=== PATIENT | female | born 1935 | race Caucasian/White ===

== ENCOUNTER 2019-04-19 06:39 | Day surgery (SDC) | payer MEDICARE ==
[2019-04-17 15:55] VITALS: BMI 27.4
--- NOTE | 2019-04-18 19:31 | P.GSHP ---
History of Present Illness H&P Date: 04/19/19 CHIEF COMPLAINT: Colon screen HISTORY OF PRESENT ILLNESS: The patient is a 83-year-old female who presents for colon screen. Lower endoscopy was offered for further evaluation and management. PAST MEDICAL HISTORY: Please see list. PAST SURGICAL HISTORY: Please see list. MEDICATIONS: Please see list. ALLERGIES: Please see list. SOCIAL HISTORY: No illicit drug use FAMILY HISTORY: No reports of Crohn disease or ulcerative colitis. REVIEW OF ORGAN SYSTEMS: CONSTITUTIONAL: No reports of fevers or chills. PHYSICAL EXAM: VITAL SIGNS: Stable GENERAL: Well-developed pleasant in no acute distress. HEENT: No scleral icterus. Extraocular movements grossly intact. Moist buccal mucosa. NECK: Supple without lymphadenopathy. CHEST: Unlabored respirations. Equal bilateral excursions. CARDIOVASCULAR: Regular rate and rhythm. Distal 2+ pulses. ABDOMEN: Soft, nontender, nondistended. MUSCULOSKELETAL: No clubbing, cyanosis, or edema. ASSESSMENT: 1. Colon screen. PLAN: 1. Recommend proceeding with a lower endoscopy Past Medical History Past Medical History: Diabetes Mellitus, Eye Disorder, Hyperlipidemia, Hypertension Additional Past Medical History / Comment(s): CHANGE IN BOWEL HABITS. LOSS OF APPETITE. 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 parathyroid surgery. COLONOSCOPY. BILAT CATARACTS REMOVED. REPAIR OF HOLE IN LT EYE Past Anesthesia/Blood Transfusion Reactions: No Reported Reaction Date of Last Stent Placement:: 2011 Smoking Status: Never smoker - Past Family History Mother Family Medical History: No Reported History Medications and Allergies Home Medications Medication Instructions Recorded Confirmed Type Aspirin EC [Ecotrin] 325 mg PO DAILY 09/23/14 04/17/19 History Calcium Carbonate [Tums] 2,000 mg PO TID 09/23/14 04/17/19 History Cholecalciferol [Vitamin D3] 2,000 unit PO DAILY@1200 09/23/14 04/17/19 History Enalapril [Vasotec] 2.5 mg PO BID 09/23/14 04/17/19 History Focus Macula Pro 1 drops DAILY 09/23/14 04/17/19 History Pravastatin Sodium [Pravachol] 40 mg PO HS 09/23/14 04/17/19 History metFORMIN HCL [Glucophage] 500 mg PO DAILY 09/23/14 04/17/19 History Multivitamins, Thera [Multivitamin 1 tab PO DAILY 04/17/19 04/17/19 History (formulary)] Allergies Allergy/AdvReac Type Severity Reaction Status Date / Time No Known Allergies Allergy Verified 04/17/19 15:46
[~2019-04-19 06:39] MED LIST: LACTATED RINGERS 1,000 ML IV SCH
[2019-04-19 07:15] VITALS: TEMP 98.3
[2019-04-19] MEDS ORDERED: LACTATED RINGERS 1,000 ML IV ONE (07:20)
[2019-04-19 07:23] LABS: Glucose,Whole Blood 112 mg/dL (75-99)
[2019-04-19] MEDS ORDERED: PROPOFOL 10 MG/ML 20 ML VIAL IV ONE (07:24)
[2019-04-19] MEDS ORDERED: ePHEDrine SULFATE/0.9% NACL/PF 50 MG/5 ML SYRINGE IV ONE (07:24)
--- NOTE | 2019-04-19 07:53 | P.PCN ---
Date of Procedure: 04/19/19 Description of Procedure: PREOPERATIVE DIAGNOSIS: Change in bowel habits Anal rectal pain POSTOPERATIVE DIAGNOSIS: Change in bowel habits. Anal rectal pain Diverticulosis, scattered. Pruritus ani Lichen sclerosus perineum/vulva OPERATION: Colonoscopy to the ascending colon SURGEON: Britney Torres MD. ANESTHESIA: MAC. INDICATIONS: The patient is a 83-year-old female who presents with change in bowel habits including pain. Benefits and risks were described and informed consent was obtained. DESCRIPTION OF PROCEDURE: The patient had undergone Suprep. She had been brought into the operating room and laid in the left lateral decubitus position. After adequate intravenous sedation, the rectum was examined with 2% lidocaine jelly. Large external hemorrhoids were encountered with features of lichen sclerosus along the perineum extending into the vulva. The rectal tone was within normal limits. No lesions were palpated in the rectal vault. An Olympus colonoscope was advanced to the ascending colon using abdominal wall pressure she had a very floppy sigmoid colon. The prep was good. The scope was removed with visualization of each mucosal fold. Scattered diverticulosis was encountered. No colonic polyps were found. No evidence of focal colitis was found. Retroflexion of the scope demonstrated grade 1 internal hemorrhoids without active bleeding or inflammation. The colon was desufflated. The patient had tolerated the procedure well. Withdrawal time was over 6 minutes. FINDINGS: Aronchick preparation quality scale 2 (1-5) Internal hemorrhoids, grade 1 External prolapsed hemorrhoids, grade 4 No arteriovenous malformations. No adenomatous polyps. No focal colitis. Lichen sclerosus perineum including anus, vulva RECOMMENDATIONS: Will need skin biopsy of the perineum including referral to a cans vacuum tester Plan - Discharge Summary Discharge Rx Participant: Yes New Discharge Prescriptions: No Action Pravastatin Sodium [Pravachol] 40 mg PO HS Aspirin EC [Ecotrin] 325 mg PO DAILY metFORMIN HCL [Glucophage] 500 mg PO DAILY Cholecalciferol [Vitamin D3] 2,000 unit PO DAILY@1200 Calcium Carbonate [Tums] 2,000 mg PO TID Enalapril [Vasotec] 2.5 mg PO BID Focus Macula Pro 1 drops DAILY Multivitamins, Thera [Multivitamin (formulary)] 1 tab PO DAILY Discharge Medication List Aspirin EC [Ecotrin] 325 mg PO DAILY 09/23/14 [History] Calcium Carbonate [Tums] 2,000 mg PO TID 09/23/14 [History] Cholecalciferol [Vitamin D3] 2,000 unit PO DAILY@1200 09/23/14 [History] Enalapril [Vasotec] 2.5 mg PO BID 09/23/14 [History] Focus Macula Pro 1 drops DAILY 09/23/14 [History] Pravastatin Sodium [Pravachol] 40 mg PO HS 09/23/14 [History] metFORMIN HCL [Glucophage] 500 mg PO DAILY 09/23/14 [History] Multivitamins, Thera [Multivitamin (formulary)] 1 tab PO DAILY 04/17/19 [History] Follow up Appointment(s)/Referral(s): Britney Torres MD [STAFF PHYSICIAN] - 04/23/19 Patient Instructions/Handouts: Diverticulosis Diet (GEN), Diverticulosis (DC) Activity/Diet/Wound Care/Special Instructions: Lower endoscopy as needed. Follow-up in the office Discharge Disposition: HOME SELF-CARE
[2019-04-19 08:09] VITALS: BP 142/87; PULSE 76; RESP 18
== END 2019-04-19 08:35 | disposition home or self-care (01) ==
LOC: ORWHC2ENDO 06:39
PROVIDERS: ATTEND Surgery Plastic and Reconstructive Surgery
DX: K57.30 Diverticulosis of large intestine without perforation or abscess without bleeding (principal); K64.0 First degree hemorrhoids; K64.8 Other hemorrhoids; L90.0 Lichen sclerosus et atrophicus; L29.0 Pruritus ani; K63.89 Other specified diseases of intestine; K62.89 Other specified diseases of anus and rectum; N90.4 Leukoplakia of vulva; I10 Essential (primary) hypertension; E78.5 Hyperlipidemia, unspecified; I25.10 Atherosclerotic heart disease of native coronary artery without angina pectoris; E11.9 Type 2 diabetes mellitus without complications; Z95.5 Presence of coronary angioplasty implant and graft; Z90.49 Acquired absence of other specified parts of digestive tract; Z98.890 Other specified postprocedural states; Z98.41 Cataract extraction status, right eye; Z98.42 Cataract extraction status, left eye; Z86.69 Personal history of other diseases of the nervous system and sense organs; Z79.82 Long term (current) use of aspirin; Z79.84 Long term (current) use of oral hypoglycemic drugs; Z79.899 Other long term (current) drug therapy
CPT/HCPCS: 45378; J2704

== ENCOUNTER → 2020-01-06 | Outpatient (CLI) | payer MEDICARE ==
[~2020-01-06] MED LIST changes: +DENOSUMAB 60 MG/ML 1 ML SYRINGE SQ NR; +DENOSUMAB 60 MG/ML 1 ML SYRINGE SQ ONE; -LACTATED RINGERS 1,000 ML IV SCH
[2020-01-06 10:09] VITALS: BP 153/79; PULSE 91; RESP 16; TEMP 98.1
== END | disposition home or self-care (01) ==
LOC: PROCWHC3 09:46
PROVIDERS: ATTEND Family Medicine
DX: M81.0 Age-related osteoporosis without current pathological fracture (principal)
CPT/HCPCS: 96372; J0897

== ENCOUNTER → 2020-07-08 | Outpatient (CLI) | payer MEDICARE ==
[~2020-07-08] MED LIST changes: -DENOSUMAB 60 MG/ML 1 ML SYRINGE SQ NR
[2020-07-08 10:47] VITALS: BP 172/85; PULSE 99; RESP 16; TEMP 97.8
== END | disposition home or self-care (01) ==
LOC: PROCWHC3 10:32
PROVIDERS: ATTEND Family Medicine
DX: M81.0 Age-related osteoporosis without current pathological fracture (principal)
CPT/HCPCS: 96372; J0897

== ENCOUNTER → 2021-01-13 | Outpatient (CLI) | payer MEDICARE ==
[2021-01-13 10:39] VITALS: BP 136/70; PULSE 98; RESP 16; TEMP 98.1
== END ==
LOC: PROCWHC3 10:14
PROVIDERS: ATTEND Family Medicine
DX: M81.0 Age-related osteoporosis without current pathological fracture (principal)
CPT/HCPCS: 96372; J0897

== ENCOUNTER → 2021-05-19 | Outpatient (CLI) | payer MEDICARE ==
[~2021-05-19] MED LIST changes: +CASIRIVIMAB/IMDEVIMAB (EUA) 1,200 MG in SODIUM CHLORIDE 0.9% 100 ML IVPB NR; -DENOSUMAB 60 MG/ML 1 ML SYRINGE SQ ONE; +SODIUM CHLORIDE 0.9% 50 ML IVPB NR; +SODIUM CHLORIDE 0.9% 500 ML 500 ML in EMPTY BAG 1 BAG IV PRN
[2021-05-19 11:07] VITALS: RESP 16; TEMP 97.9
[2021-05-19 11:51] VITALS: BP 116/59; PULSE 76
== END ==
LOC: PROCWHC3 10:07
PROVIDERS: ATTEND Family Medicine
DX: U07.1 COVID-19 (principal); I11.9 Hypertensive heart disease without heart failure
CPT/HCPCS: 96360; Q0243; M0243; 96361

== ENCOUNTER → 2021-07-16 | Outpatient (CLI) | payer MEDICARE ==
[~2021-07-16] MED LIST changes: -CASIRIVIMAB/IMDEVIMAB (EUA) 1,200 MG in SODIUM CHLORIDE 0.9% 100 ML IVPB NR; +DENOSUMAB 60 MG/ML 1 ML SYRINGE SQ NR; -SODIUM CHLORIDE 0.9% 50 ML IVPB NR; -SODIUM CHLORIDE 0.9% 500 ML 500 ML in EMPTY BAG 1 BAG IV PRN
[2021-07-16 09:10] VITALS: BP 166/79; PULSE 99; RESP 16; TEMP 98.6
== END ==
LOC: PROCWHC3 08:42
PROVIDERS: ATTEND Family Medicine
DX: M81.0 Age-related osteoporosis without current pathological fracture (principal)
CPT/HCPCS: 96372; J0897

== ENCOUNTER → 2022-01-25 | Outpatient (CLI) | payer MEDICARE ==
[2022-01-25 09:23] VITALS: BP 144/72; PULSE 96; RESP 18; TEMP 97.8
== END ==
LOC: PROCWHC3 08:59
PROVIDERS: ATTEND Family Medicine
DX: M81.0 Age-related osteoporosis without current pathological fracture (principal)
CPT/HCPCS: 96372; J0897

== ENCOUNTER → 2023-03-17 | Outpatient (CLI) | payer MEDICARE ==
--- NOTE | 2023-03-17 13:23 | US ---
EXAMINATION TYPE: US kidneys/renal and bladder DATE OF EXAM: 03/17/2023 COMPARISON: NONE CLINICAL INDICATION: Female, 87 years old with history of N13.2 HYDRONEPHROSIS; [place] hx of stones.Mehran wade states she has a stent in. EXAM MEASUREMENTS: Right Kidney: 10.8 x 4.1 x 5.4 cm Left Kidney: 11.7 x 7.2 cm Right Kidney: Multiple stones visualized largest 1.2 cm dilated renal pelvis 6.5 x 2.9 x 5.7 cm. Left Kidney: Multiple stones visualized largest 2.1 cm Bladder: not full Bilateral Jets seen: no Dilated right renal pelvis with mild hydronephrosis. Multiple calculi identified within both kidneys. Mild left hydronephrosis. Prominent 2.1 cm calculus identified within the renal pelvis. No definitiv e ureteral stent identified. Urine bladder is underdistended. No bowel jets identified. IMPRESSION: Mild bilateral hydronephrosis. Multiple bilateral renal calculi with largest in the left renal pelvis measuring up to 2.1 cm.
--- NOTE | 2023-03-17 13:24 | XR ---
EXAMINATION TYPE: XR KUB DATE OF EXAM: 03/17/2023 COMPARISON: Renal ultrasound the same date HISTORY: Hydronephrosis TECHNIQUE: Single supine KUB image of the abdomen is obtained FINDINGS: Small bowel demonstrates no evidence for dilatation or air fluid levels. Gas and fecal material is seen in non-distended colon. No convincing evidence for pneumoperitoneum. Right renal 7 mm calculus. Left renal pelvis 2.0 cm calculus. No ureteral stent is identified. The lung bases are clear. The osseous structures are intact. Degenerative changes of the lumbar spine. IMPRESSION: Bilateral renal calculi with a 2.0 cm calculus in the left renal pelvis corresponding to ultrasound.
== END | disposition home or self-care (01) ==
LOC: RADUSWWP 11:49
PROVIDERS: ATTEND Urology
DX: N13.2 Hydronephrosis with renal and ureteral calculous obstruction (principal); Z87.442 Personal history of urinary calculi
CPT/HCPCS: 74018; 76770

== ENCOUNTER → 2023-04-06 | Outpatient (CLI) | payer MEDICARE ==
[2023-04-06 16:32] LABS: Basophils # (A) 0.04 X 10*3/uL (0.00-0.10); Basophils % (A) 0.7 %; Eosinophils # (A) 0.11 X 10*3/uL (0.04-0.35); Eosinophils % (A) 1.9 %; HCT 41.3 % (37.2-46.3); HGB 13.2 d/dL (12.0-15.0); Lymphocytes # (A) 1.67 X 10*3/uL (0.90-5.00); Lymphocytes % (A) 28.9 %; MCH 30.4 pg (27.0-32.0); MCV 95.2 FL (80.0-97.0); Mean Platelet Volume 10.1 FL (9.5-12.2); Monocytes % (A) 6.9 %; NRBC Per 100 WBC 0 X 10*3/uL (0.00-0.01); Neutrophils # (A) 3.55 X 10*3/uL (1.80-7.70); Neutrophils % (A) 61.4 %; Platelet Count 263 X 10*3/uL (140-440); RBC 4.34 X 10*6/uL (4.10-5.20); RDW 12.9 % (11.5-14.5); WBC 5.78 X 10*3/uL (4.50-10.00)
[2023-04-06 18:10] LABS: Blood Urea Nitrogen 18.2 mg/dL (9.0-27.0); Carbon Dioxide 28.3 mmol/L (21.6-31.8); Chloride 105 mmol/L (96-109); Glucose 116 mg/dL (70-110); Potassium 5.8 mmol/L (3.5-5.5); Sodium 144 mmol/L (135-145)
== END | disposition home or self-care (01) ==
LOC: LABPAT 10:25
PROVIDERS: ATTEND Urology
DX: Z01.812 Encounter for preprocedural laboratory examination (principal); N20.0 Calculus of kidney; R31.29 Other microscopic hematuria
CPT/HCPCS: 36415; 80048; 85025; 87086

== ENCOUNTER 2023-05-18 06:47 | Day surgery (SDC) | payer MEDICARE ==
--- NOTE | 2023-05-17 22:04 | P.GSHP ---
History of Present Illness H&P Date: 05/17/23 Chief Complaint: Gross hematuria, hydronephrosis The patient is an 87-year-old white female with no prior history of urolithiasis. She presented last fall with gross hematuria. Urine cytology was negative. She held her anticoagulants, which she was taking for atrial fibril lation, but is now taking Xarelto. She denied flank pain. CT scan showed left hydronephrosis due to a 10 x 16 mm left UPJ calculus, as well as bilateral renal calculi. On April 13, she underwent bilateral ureteroscopy with laser lithotripsy. Right lower pole renal calculi measuring up to 8 mm in size were fragmented completely, as was a 15 mm left UPJ calculus. She now comes for cystoscopy, bilateral ureteral stent removal, left ureteroscopy with laser lithotripsy and/or stone basketing to remove residual calculi. - Genitourinary (Female) Genitourinary: Reports hematuria, Reports kidney stones, Denies flank pain Past Medical History Past Medical History: Diabetes Mellitus, Eye Disorder, Hyperlipidemia, Hypertension Additional Past Medical History / Comment(s): change in bowel habits, loss of appetite, 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 cataracts removed, repair of hole Lt. retina, lit hotripsy w/ stents 03/2023 Past Anesthesia/Blood Transfusion Reactions: No Reported Reaction Date of Last Stent Placement:: 2011 Smoking Status: Never smoker - Past Family History Mother Family Medical History: No Reported History Medications and Allergies Home Medications Medication Instructions Recorded Confirmed Type Cholecalciferol [Vitamin D3] 2,000 unit PO DAILY 09/23/14 05/16/23 History Enalapril [Vasotec] 2.5 mg PO BID 09/23/14 05/16/23 History Focus Macula Pro 1 drops BOTH EYES DAILY 09/23/14 05/16/23 History Pravastatin Sodium [Pravachol] 40 mg PO HS 09/23/14 05/16/23 History metFORMIN HCL [Glucophage] 500 mg PO DAILY 09/23/14 05/16/23 History Multivitamins, Thera [Multivitamin 1 tab PO DAILY 04/17/19 05/16/23 History (formulary)] Denosumab [Prolia] 60 mg SQ Q183D 07/08/20 05/16/23 History Rivaroxaban [Xarelto] 20 mg PO 1900 04/10/23 05/16/23 History Tolterodine ER [Detrol LA] 4 mg PO DAILY #30 cap 04/13/23 05/16/23 Rx Albuterol Sulfate [Albuterol 2 puff INHALATION QID 05/01/23 05/16/23 History Sulfate Hfa] Unk Calcium 1,000 mg PO DAILY 05/01/23 05/16/23 History Allergies Allergy/AdvReac Type Severity Reaction Status Date / Time No Known Allergies Allergy Verified 05/16/23 08:51 Surgical - Exam - General well developed, well nourished, no distress - Respiratory normal respiratory effort - Abdomen Abdomen: soft, non tender, no guarding, no rigid, no rebound - Genitourinary normal external genitalia - Psychiatric oriented to time, oriented to person, oriented to place, speech is normal, memory intact Assessment and Plan (1) Calculus of kidney Status: Acute Code(s): N20.0 - CALCULUS OF KIDNEY SNOMED Code(s): 94793484 Plan: Cystoscopy, bilateral ureteral stent removal, left ureteroscopy with Holmium laser lithotripsy and/or stone basketing. The patient is aware of potential risks, which include anesthesia, bleeding, infection, and ureteral injury.
[~2023-05-18 06:47] MED LIST changes: -DENOSUMAB 60 MG/ML 1 ML SYRINGE SQ NR; +DEXAMETHASONE SOD PHOSPHATE 4 MG/ML 1 ML VIAL IV ONE; +HYDROmorphone 0.5 MG/0.5 ML SYRINGE IVP PRN; +LACTATED RINGERS 1,000 ML IV SCH; +LIDOCAINE 1% (10MG/ML) FOR IV START INTRADERMA PRN; +MIDAZOLAM 2 MG/2 ML VIAL IV PRN; +ONDANSETRON 4 MG/2 ML VIAL IVP ONE
--- NOTE | 2023-05-18 07:33 | XR ---
EXAMINATION TYPE: XR KUB DATE OF EXAM: 05/18/2023 7:26 AM CLINICAL INDICATION:Female, 87 years old with history of kidney stones; [facility] COMPARISON: 03/17/2023r TECHNIQUE: One radiographic view of the abdomen was obtained. FINDINGS/IMPRESSION: 1. Redemonstration of bilateral renal stones with right-sided pigtail catheter superior pigtail slig htly lower and medial in position. Correlate for migration of right ureteral catheter. 2. Renal calculi measuring up to 6 cm on the right and 8 mm on the left. 3. Nonspecific bowel gas pattern.
[2023-05-18] MEDS ORDERED: LACTATED RINGERS 1,000 ML IV ONE (07:51)
[2023-05-18 07:58] LABS: Glucose,Whole Blood 133 mg/dL (70-110)
[2023-05-18] MEDS ORDERED: LIDOCAINE 1% INJ 10MG/ML (20 ML MDV) ONE (09:01)
[2023-05-18] MEDS ORDERED: PROPOFOL 10 MG/ML 20 ML VIAL IV ONE (09:01)
[2023-05-18] MEDS ORDERED: fentaNYL (PF) 50 MCG/ML 2 ML AMP ONE (09:01)
[2023-05-18] MEDS ORDERED: GLYCOPYRROLATE 0.2 MG/ML 2 ML VIAL ONE (09:01)
[2023-05-18] MEDS ORDERED: PHENYLEPHRINE-0.9% NACL SYG 1,000 MCG/10 ML SYRINGE ONE (09:01)
[2023-05-18] MEDS ORDERED: ROCURONIUM 10 MG/ML (5 ML VIAL) IV ONE (09:01)
[2023-05-18] MEDS ORDERED: PHENYLEPHRINE 10 MG/ML VIAL ONE (09:01)
[2023-05-18] MEDS ORDERED: NEOSTIGMINE 1 MG/ML 10 ML VIAL ONE (09:01)
--- NOTE | 2023-05-18 11:50 | FL ---
Intraoperative/procedural fluoroscopic services were provided for bilateral renal calculi. Total fluo roscopy time is 138.1 seconds with a total of 8 submitted images to PACS. Total DAP 1.17 mGym2. Plea se see the operative note for further details.
[2023-05-18 12:16] VITALS: TEMP 97
[2023-05-18 13:25] VITALS: RESP 20
[2023-05-18 13:48] VITALS: BP 139/63; PULSE 87
--- NOTE | 2023-06-01 14:14 | P.OP ---
Date of Procedure: 05/18/23 Preoperative Diagnosis: Bilateral Renal Calculi Postoperative Diagnosis: Same Procedure(s) Performed: Cystoscopy, bilateral ureteral stent removal, bilateral ureteroscopy with Holmium laser lithotripsy and stone basketing Anesthesia: YAMILKA Surgeon: Rolly Carvajal Estimated Blood Loss (ml): 10 IV fluids (ml): 700 Pathology: none sent Condition: stable Disposition: PACU Indications for Procedure: The patient is an 87-year-old white female with no prior history of urolithiasis. She presented last fall with gross hematuria. Urine cytology was negative. She held her anticoagulants, which she was taking for atrial fibrillation, but is now taking Xarelto. She denied flank pain. CT scan showed left hydronephrosis due to a 10 x 16 mm left UPJ calculus, as well as bilateral renal calculi. On April 13, she underwent bilateral ureteroscopy with laser lithotripsy. Right lower pole renal calculi measuring up to 8 mm in size were fragmented completely, as was a 15 mm left UPJ calculus. She now comes for cystoscopy, bilateral ureteral stent removal, left ureteroscopy with laser lithotripsy and/or stone basketing to remove residual calculi. Operative Findings: 1) Right UPJ Obstruction. 2) Abundant clot removed from left renal pelvis. 3) Right hydronephrosis, several right renal calculi fragmented. Description of Procedure: The patient was taken to the operating room and placed in the dorsolithotomy position, with legs supported in Sarthak stirrups. The external genitalia was prepped and draped sterilely. The 30 lens was used to introduce the 21-Vincentian Saldana cystoscopic sheath through the urethra and into the bladder under direct vision. Grasping forceps were used to grasp the distal end of the left ureteral stent, which was removed along with the cystoscope. A 0.038 inch Glidewire was passed through the stent and up to the left renal pelvis, where it coiled. The stent was removed. An 11/13-Vincentian ureteral access catheter was passed over the wire, up to the proximal ureter. The [employer] flexible ureteroscope was then passed through the ureteral access catheter sheath and into the left renal pelvis. Multiple clots were seen within the renal pelvis, and these were removed using a 1.9-Vincentian 0 tip nitinol basket. Several calculus fragments were identified, and these were fragmented with the Holmium laser until there were no residual calculus fragments exceeding the size of the laser fiber tip. Pullout ureteroscopy showed no evidence of ureteral trauma. The cystoscope was passed into the bladder under direct vision. Grasping forceps were used to grasp the distal end of the right ureteral stent , which was removed along with the cystoscope. A 0.038 inch Glidewire was passed through the stent and up to the right renal pelvis, where it coiled. The stent was removed, and an 11/13-Vincentian ureteral access catheter was passed over the wire, up to the proximal ureter. The [employer] flexible ureteroscope was passed through the ureteral access catheter sheath, but it was difficult to pass the ureteroscope through the narrowed ureteropelvic junction. Therefore, the Glidewire was passed through the ureteral access catheter sheath, and using the obturator the ureteral access catheter was passed into the right renal pelvis. It was then possible to pass the flexible ureteroscope into the right renal pelvis, which was examined. It was possible to identify the right lower pole calculus and grasp it with the stone basket. It was then repositioned into the renal pelvis, where lithotripsy was performed. Fluoroscopy showed that the calculus was significantly reduced in size. However, when the calculus measured 2-3 mm in size, it moved and could no longer be identified within the dilated renal pelvis. The ureteroscope was withdrawn under direct vision. There was no evidence of ureteral trauma. The patient tolerated the procedure well and was taken to the recovery room in stable condition.
== END 2023-05-18 14:48 | disposition home or self-care (01) ==
LOC: OR 06:47
PROVIDERS: ATTEND Urology
DX: N13.2 Hydronephrosis with renal and ureteral calculous obstruction (principal); I48.91 Unspecified atrial fibrillation; Z79.01 Long term (current) use of anticoagulants; E11.9 Type 2 diabetes mellitus without complications; I25.10 Atherosclerotic heart disease of native coronary artery without angina pectoris; I10 Essential (primary) hypertension; E78.5 Hyperlipidemia, unspecified; H57.9 Unspecified disorder of eye and adnexa; Z87.442 Personal history of urinary calculi; M81.0 Age-related osteoporosis without current pathological fracture; Z95.5 Presence of coronary angioplasty implant and graft; Z90.710 Acquired absence of both cervix and uterus; Z90.49 Acquired absence of other specified parts of digestive tract; Z79.84 Long term (current) use of oral hypoglycemic drugs; Z79.51 Long term (current) use of inhaled steroids; Z79.899 Other long term (current) drug therapy
CPT/HCPCS: 52353; 74018; C1769; J1100; J2710; J0690; J2405; J2001; J3010; J2704; J2371 ×2

== ENCOUNTER → 2023-07-11 | Outpatient (CLI) | payer MEDICARE ==
--- NOTE | 2023-07-11 14:35 | US ---
EXAMINATION TYPE: US kidneys/renal and bladder DATE OF EXAM: 07/11/2023 COMPARISON: US, KUB CLINICAL INDICATION: Female, 87 years old with history of N20.0 Calculus of kidney; H/O renal calculi EXAM MEASUREMENTS: Right Kidney: 11.2 x 4.5 x 6.2 cm Left Kidney: 13.0 x 4.9 x 4.7 cm Right Kidney: Dilated renal pelvis, possible multiple (up to 4) renal calculi, largest appearing at l ower pole= 1.4 cm Left Kidney: Dilated renal pelvis, possible multiple (up to 6) renal calculi, largest appearing at mi d/lower pole= 1.4 cm in size Bladder: wnl Bilateral Jets seen: No IMPRESSION: Dilated renal pelves with multiple calculi. Consider evaluation with CT renal stone protocol.
== END | disposition home or self-care (01) ==
LOC: RADUSWWP 12:18
PROVIDERS: ATTEND Urology
DX: N20.0 Calculus of kidney (principal); N28.89 Other specified disorders of kidney and ureter
CPT/HCPCS: 76770; 83970

== ENCOUNTER → 2023-09-28 | Outpatient (CLI) | payer MEDICARE ==
[2023-09-28] MEDS: DENOSUMAB 60 MG/ML 1 ML SYRINGE SQ ONE (11:33)
[2023-09-28 12:18] VITALS: BP 136/73; PULSE 99; RESP 16; TEMP 98.2
== END ==
LOC: PROCWHC3 11:04
PROVIDERS: ATTEND Nurse Practitioner Adult Health
DX: M81.0 Age-related osteoporosis without current pathological fracture (principal)
CPT/HCPCS: 96372; J0897

== ENCOUNTER → 2024-04-01 | Outpatient (CLI) | payer MEDICARE ==
[2024-04-01 11:15] VITALS: BP 129/73; PULSE 76; RESP 16; TEMP 97.7
[2024-04-01] MEDS: DENOSUMAB 60 MG/ML 1 ML SYRINGE SQ NR (11:15)
== END ==
LOC: PROCWHC3 10:45
PROVIDERS: ATTEND Nurse Practitioner Adult Health
DX: M81.0 Age-related osteoporosis without current pathological fracture (principal)
CPT/HCPCS: 96372

== ENCOUNTER 2024-09-30 13:58 | Outpatient (CLI) | payer MEDICARE ==
[2024-09-30 14:08] VITALS: BP 137/69; PULSE 93; RESP 16; TEMP 97.3
[2024-09-30] MEDS: DENOSUMAB 60 MG/ML 1 ML SYRINGE SQ ONE (14:09)
== END 2024-10-01 08:41 | disposition home or self-care (01) ==
LOC: PROCWHC3 13:58
PROVIDERS: ATTEND Family Medicine
DX: M81.0 Age-related osteoporosis without current pathological fracture (principal)
CPT/HCPCS: 96372; J0897

== ENCOUNTER 2024-10-02 10:26 | Inpatient (IN) | payer MEDICARE ==
--- NOTE | 2024-10-02 10:54 | ED ---
Female Urogenital HPI - General Chief complaint: Urogenital Stated complaint: urogenital Time Seen by Provider: 10/02/24 10:48 Source: patient, EMS, RN notes reviewed Mode of arrival: EMS Limitations: no limitations - History of Present Illness Initial comments: 89-year-old female transferred from [facility] for urology consultation. Patient states yesterday she started to have a dull abdominal pain. The pain progressively worsened throughout the day yesterday and last night prompted emergency department visit at [facility] today. Patient does report on Monday she felt very nauseous and unwell. Patient does admit to an extensive history of kidney stones and follows up with Dr. Carvajal. She denies any fevers or chills. She does admit to hematuria but denies any dysuria or increase in frequency, diarrhea or constipation. Upon chart review at [facility] patient found to have a 11 x 6 mm and 3 mm calculus in the left distal ureter. Urine analysis concerning of infection transferred was considered for urology consultation for septic renal stone. Patient was started on IV cefepime. Patient received Tylenol and lactated ringers prior to transfer. No other complaints. - Related Data Home Medications Medication Instructions Recorded Confirmed Enalapril [Vasotec] 2.5 mg PO BID 09/23/14 10/02/24 Pravastatin Sodium [Pravachol] 40 mg PO HS 09/23/14 10/02/24 Rivaroxaban [Xarelto] 20 mg PO DAILY 04/10/23 10/02/24 Ondansetron Odt [Zofran Odt] 4 mg PO Q8HR PRN 10/02/24 10/02/24 Sulfamethox-Tmp 800-160Mg [Bactrim 1 tab PO Q12HR 10/02/24 10/02/24 DS 800-160 mg] Vitamin D3 (Unknown Strength) 1 dose PO DAILY 10/02/24 10/02/24 metFORMIN HCL 1,000 mg PO DAILY 10/02/24 10/02/24 Allergies Allergy/AdvReac Type Severity Reaction Status Date / Time No Known Allergies Allergy Verified 10/02/24 12:27 Review of Systems ROS Statement: Those systems with pertinent positive or pertinent negative responses have been documented in the HPI. ROS Other: All systems not noted in ROS Statement are negative. 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 cataracts removed, repair of hole Lt. retina, lithotripsy w/ stents 03/2023 Past Anesthesia/Blood Transfusion Reactions: No Reported Reaction Date of Last Stent Placement:: 2011 Past Psychological History: No Psychological Hx Reported Smoking Status: Never smoker Past Alcohol Use History: Rare Past Drug Use History: None Reported - Past Family History Mother Family Medical History: No Reported History General Exam Limitations: no limitations General appearance: alert, in no apparent distress Respiratory exam: Present: normal lung sounds bilaterally. Absent: respiratory distress, wheezes, rales, rhonchi, stridor Cardiovascular Exam: Present: regular rate, normal rhythm, normal heart sounds. Absent: systolic murmur, diastolic murmur, rubs, gallop, clicks GI/Abdominal exam: Present: soft, normal bowel sounds. Absent: distended, tenderness, guarding, rebound, rigid Extremities exam: Present: normal inspection, full ROM, normal capillary refill. Absent: tenderness, pedal edema, joint swelling, calf tenderness Back exam: Present: normal inspection, other (No CVA tenderness bilaterally) Neurological exam: Present: alert, oriented X3, CN II-XII intact Skin exam: Present: warm, dry, intact, normal color. Absent: rash Course Vital Signs 10/02/24 10/02/24 10:32 10:40 Temperature 98.6 F Pulse Rate 91 92 Respiratory 18 Rate Blood Pressure 113/59 O2 Sat by Pulse 95 Oximetry - Reevaluation(s) Reevaluation #1: 10/02/24 11:51 Case discussed with cardiopulmonary specialist urology, Dr. Carvajal. He plans on surgical intervention with stent placement this afternoon. Patient NPO. Requesting medicine admission. Reevaluation #2: 10/02/24 11:51 Case discussed with sound physician, , for admission. Medical Decision Making - Medical Decision Making Was pt. sent in by a medical professional or institution (, PA, EXTRUDING MACHINE OPERATOR, urgent care, hospital, or snf...) When possible be specific @ -Yes, patient transferred from [facility] for evaluation of septic kidney stone Did you speak to anyone other than the patient for history (EMS, parent, family, police, friend...)? What history was obtained from this source @ -No Did you review nursing and triage notes (agree or disagree)? Why? @ -I reviewed and agree with nursing and triage notes Were old charts reviewed (outside hosp., previous admission, EMS record, old EKG, old radiological studies, urgent care reports/EKG's, snf records)? Report findings @ -[I reviewed ER visit at [facility] from 10-02-2024. Patient underwent extensive workup. CT abdomen pelvis with contrast showing mild left hydronephrosis secondary to obstructing 11 x 6 mm and 3 mm calculus in the distal ureter with evidence of a sending infection with. Sinus edge urethral Frett stranding involving the left kidney. Urothelial thickening of the left UPJ. Underlying mass not excluded. Mild right hydronephrosis similar to prior. Bilateral confluent calculi that are possibly staghorn. Common bile duct focal narrowing of the pancreatic head dilation with up to 15 mm. Colonic diverticulosis. WBC 7.78. Lactic 1.3. Kidney function as follows BUN 16, creatinine 0.77. Urinalysis concerning of infection with moderate bacteria, positive nitrates and large blood. Patient given Tylenol and started on IV cefepime prior to transfer for urology consult. Differential Diagnosis (chest pain, altered mental status, abdominal pain women, abdominal pain men, vaginal bleeding, weakness, fever, dyspnea, syncope, headache, dizziness, GI bleed, back pain, seizure, CVA, palpatations, mental health, musculoskeletal)? @ -Differential Abdominal Pain Women:Appendicitis, Cholecystitis, diverticulosis, ischemic bowel, pancreatitis, hepatitis, UTI, gastroenteritis, AAA, incarcerated hernia, bowel obstruction, constipation, inflammatory bowel, hepatitis, peptic ulcer disease, splenic infarction, perforated viscus, vulvitis, ovarian torsion, PID, kidney stone, placenta abruption, this is not meant to be an all-inclusive list EKG interpreted by me (3pts min.). @ -As above X-rays interpreted by me (1pt min.). @ -None done CT interpreted by me (1pt min.). @ -None done U/S interpreted by me (1pt. min.). @ -None done What testing was considered but not performed or refused? (CT, X-rays, U/S, labs)? Why? @ -None What meds were considered but not given or refused? Why? @ -None Did you discuss the management of the patient with other professionals (professionals i.e. DrDrew, PA, EXTRUDING MACHINE OPERATOR, lab, RT, psych nurse, family welfare social work professor, cloud architect, teacher, environmental compliance officer, lining caser)? Give summary @ -Yes, case discussed with Dr. Carvajal, cardiopulmonary specialist urology, for admission. He advised on patient to be n.p.o. and admission to medicine. He plans on surgical stent placement this afternoon. Case also discussed with sound physician, Dr. Conawy, who accepts admission. Was smoking cessation discussed for >3mins.? @ -No Was critical care preformed (if so, how long)? @ -No Were there social determinants of health that impacted care today? How? (Homelessness, low income, unemployed, alcoholism, drug addiction, transportation, low edu. Level, literacy, decrease access to med. care, nursing home, rehab)? @ -No Was there de-escalation of care discussed even if they declined (Discuss DNR or withdrawal of care, Hospice)? DNR status @ -No What co-morbidities impacted this encounter? (DM, HTN, Smoking, COPD, CAD, Cancer, CVA, ARF, Chemo, Hep., AIDS, mental health diagnosis, sleep apnea, morbid obesity)? @ -DM, HTN, HLD Was patient admitted / discharged? Hospital course, mention meds given and route, prescriptions, significant lab abnormalities, going to OR and other pertinent info. @ -Discharged. 89 year old female presenting to the ER via EMS transferred from [facility]. Upon arrival vitals within acceptable limits. Patient in no signs of acute distress nontoxic-appearing. There is no focal tenderness on abdominal exam. Normal bowel sounds without rebound or guarding. No CVA tenderness. Repeat laboratory studies showing a WBC of 6.7, lactic 1.1. BUN 17, creatinine 0.64 with GFR 80. Chart review from [facility] CT scan showing mild left hydronephrosis secondary obstructing 11 x 6 mm calculus in the distal ureter with ascending infection. Urinalysis concerning of infection with positive nitratres and moderate blood. Findings discussed with on-call urology, Dr. Carvajal. He plans on surgical stent placement this afternoon, he is requesting admission to medicine. Case also discussed with [facility] physician, , who accepts admission. Patient NPO. Urinalysis, urine culture and blood cultures pending. Patient was started on IV cefepime and given p.o. tylenol along with 1L LR bouls at [facility]. ID and urology on consult. Patient given 500ml LR bouls upon arrival. Patient agreeable for admission and admitted in stable condition. Case discussed with ED attending, Dr. Anand. Undiagnosed new problem with uncertain prognosis? @ -No Drug Therapy requiring intensive monitoring for toxicity (Heparin, Nitro, Insulin, Cardizem)? @ -No Were any procedures done? @ -No Diagnosis/symptom? @ -UTI/hydronephrosis secondary to obstructing calculus Acute, or Chronic, or Acute on Chronic? @ -Acute Uncomplicated (without systemic symptoms) or Complicated (systemic symptoms)? @ -Complicated Side effects of treatment? @ -No Exacerbation, Progression, or Severe Exacerbation? @ -No Poses a threat to life or bodily function? How? (Chest pain, [place], [place], pneumonia, PE, COPD, DKA, ARF, appy, cholecystitis, CVA, Diverticulitis, Homicidal, Suicidal, threat to staff... and all critical care pts) @ -Yes, can lead to sepsis and/or endorgan dysfunction. - Lab Data Result diagrams: 10/02/24 10:54 10/02/24 10:54 Lab Results 10/02/24 10/02/24 10/02/24 Range/Units 10:54 10:54 10:54 WBC 6.7 (3.8-10.6) k/uL RBC 4.60 (3.80-5.40) m/uL Hgb 13.6 (11.4-16.0) gm/dL Hct 42.7 (34.0-46.0) % MCV 92.9 (80.0-100.0) fL MCH 29.6 (25.0-35.0) pg MCHC 31.9 (31.0-37.0) g/dL RDW 13.5 (11.5-15.5) % Plt Count 266 (150-450) k/uL MPV 7.0 Neutrophils % 88 % Lymphocytes % 7 % Monocytes % 2 % Eosinophils % 3 % Basophils % 0 % Neutrophils # 5.8 (1.3-7.7) k/uL Lymphocytes # 0.5 L (1.0-4.8) k/uL Monocytes # 0.1 (0-1.0) k/uL Eosinophils # 0.2 (0-0.7) k/uL Basophils # 0.0 (0-0.2) k/uL Sodium 134 L (137-145) mmol/L Potassium 4.5 (3.5-5.1) mmol/L Chloride 99 (98-107) mmol/L Carbon Dioxide 31 H (22-30) mmol/L Anion Gap 4 mmol/L BUN 17 (7-17) mg/dL Creatinine 0.64 (0.52-1.04) mg/dL Est GFR (CKD-EPI)AfAm >90 (>60 ml/min/1.73 sqM) Est GFR (CKD-EPI)NonAf 80 (>60 ml/min/1.73 sqM) Glucose 120 H (74-99) mg/dL Plasma Lactic Acid Triston 1.1 (0.7-2.0) mmol/L Calcium 9.3 (8.4-10.2) mg/dL Total Bilirubin 0.7 (0.2-1.3) mg/dL AST 21 (14-36) U/L ALT 17 (4-34) U/L Alkaline Phosphatase 49 (38-126) U/L Total Protein 6.2 L (6.3-8.2) g/dL Albumin 3.7 (3.5-5.0) g/dL - EKG Data -: EKG Interpreted by Me EKG Comments: EKG taken 11: 14 showing a sinus rhythm. No ST segment elevations or depressions. T wave inversions in V3. Ventricular rate 90, MN interval 160, QRS duration 95, QT/QTc 341/388. Disposition Clinical Impression: Hydronephrosis with urinary obstruction due to renal calculus, UTI (urinary tract infection) Disposition: ADMITTED IP TO THIS HOSP Condition: Stable Time of Disposition: 11:52
[2024-10-02 11:07] LABS: Basophils % (A) 0 %; Eosinophils # (A) 0.2 k/uL (0-0.7); Eosinophils % (A) 3 %; HCT 42.7 % (34.0-46.0); HGB 13.6 gm/dL (11.4-16.0); Lymphocytes # (A) 0.5 k/uL (1.0-4.8); Lymphocytes % (A) 7 %; MCH 29.6 pg (25.0-35.0); MCHC 31.9 g/dL (31.0-37.0); MCV 92.9 fL (80.0-100.0); Monocytes # (A) 0.1 k/uL (0-1.0); Monocytes % (A) 2 %; Neutrophils # (A) 5.8 k/uL (1.3-7.7); Neutrophils % (A) 88 %; Platelet Count 266 k/uL (150-450); RDW 13.5 % (11.5-15.5); WBC 6.7 k/uL (3.8-10.6)
[2024-10-02 11:16] LABS: ALT 17 U/L (4-34); AST 21 U/L (14-36); African American GFR (CKD) >90 (>60 ml/min/1.73 sqM); Albumin 3.7 g/dL (3.5-5.0); Alkaline Phosphatase 49 U/L (38-126); Anion Gap 4 mmol/L; Blood Urea Nitrogen 17 mg/dL (7-17); Calcium 9.3 mg/dL (8.4-10.2); Carbon Dioxide 31 mmol/L (22-30); Chloride 99 mmol/L (98-107); Glucose 120 mg/dL (74-99); Non-African American GFR(CKD) 80 (>60 ml/min/1.73 sqM); Potassium 4.5 mmol/L (3.5-5.1); Sodium 134 mmol/L (137-145); Total Bilirubin 0.7 mg/dL (0.2-1.3); Total Protein 6.2 g/dL (6.3-8.2)
[2024-10-02] MEDS: LACTATED RINGERS 500 ML IV ONE (11:32)
[2024-10-02] MEDS ORDERED: ACETAMINOPHEN TAB 325 MG TAB PO PRN (11:52)
[2024-10-02] MEDS ORDERED: HYDROmorphone 0.5 MG/0.5 ML SYRINGE IVP PRN (11:52)
[2024-10-02] MEDS ORDERED: NALOXONE 0.4 MG/ML 1 ML VIAL IV PRN (11:52)
[2024-10-02] MEDS: SODIUM CHLORIDE 0.9% 1,000 ML IV SCH (12:42)
[2024-10-02 14:47] LABS: Appearance,Urine Turbid (Clear); Bacteria,Urine Few /hpf; Bilirubin,Urine Negative (Negative); Blood,Urine Large (Negative); Glucose,Urine (UA) Negative (Negative); Ketones,Urine Trace (Negative); Leukocyte Esterase,Urine Trace (Negative); Mucus,Urine Moderate /hpf; Nitrite,Urine Negative (Negative); Protein,Urine 1+ (Negative); RBC,Urine >182 /hpf (0-5); Urobilinogen,Urine <2.0 mg/dL (<2.0); WBC,Urine 25 /hpf (0-5)
[2024-10-02 14:50] LABS: Color,Urine Brown; Specific Gravity,Urine 1.047 (1.001-1.035)
[2024-10-02] MEDS ORDERED: DEXTROSE 50% SYRINGE 50 ML IVP PRN ×2 (14:50)
--- NOTE | 2024-10-02 14:51 | P.HPIM ---
History of Present Illness H&P Date: 10/02/24 89 year old F with PMH of A-Fib, HTN, DM, HLD, h/o renal stones presents to [facility] as a transfer from [facility]. She reports nausea and vomiting that started on Monday. Shortly after, she experienced abdominal pain. Pain described and dull in nature, RLQ, intermittent with no radiation. She denies any dysuria. She went to urgent care on Monday and was diagnosed with UTI. She was started on antibiotics. Symptoms persisted which prompted her to come to the ED. She reports a Tmax of 101F at [facility]. CT confirmed 11 x 6 mm and 3 mm calculus in the left distal ureter. UA concerning for infection. Patient was started on Cefepime and transferred for Urology evaluation. In the ED she underwent extensive evaluation. BP 113/59, HR 91, T 98.6F, RR 18, 95% on RA. CBC, CMP significant for Na 134, bicarb 31, glu 120, total protein 6.2. Lactic acid 1.1. Patient is admitted for further workup and management. General: non toxic, no distress, appears at stated age Derm: warm, dry Head: atraumatic, normocephalic, symmetric Mouth: no lip lesion, mucus membranes moist Cardiovascular: S1S2 reg, no murmur Lungs: Decreased BS bilaterally, no rales , no accessory muscle use Ext: no gross muscle atrophy, no edema, no contractures Neuro: no focal neuro deficits Psych: Alert and oriented. Based on my assessment of this patient, this patient meets a high complexity level of care. Urethral stone: Urology consulted, plans for OR today. Sepsis secondary to UTI: Start Rocephin 2g IV QD. Obtain UCx + BCx. NS at 75 cc/hr. Telemetry monitoring. ID consulted. Atrial fibrillation: Holding Xarelto with plans for surgery. Restart Xarelto when OK with Urology. Hypertension: Enalapril 2.5 mg PO BID/ Diabetes mellitus: ISS with Accuchecks ACHS and hypoglycemic precautions. Dyslipidemia: Pravastatin 40 mg PO QHS. CODE STATUS: FULL CODE. DVT Prophylaxis: SCD GI Prophylaxis: Designated medical POA if patient is not able to make medical decisions for themselves: Son I have reviewed the following biztalk consultant notes: ED note. I have reviewed the results of the following tests: As above. I have ordered the following tests: As above. I have discussed the care of this patient with the following independent historian: Family at bedside. 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 cataracts removed, repair of hole Lt. retina, lithotripsy w/ stents 03/2023 Past Anesthesia/Blood Transfusion Reactions: No Reported Reaction Date of Last Stent Placement:: 2011 Past Psychological History: No Psychological Hx Reported Smoking Status: Never smoker Past Alcohol Use History: Rare Past Drug Use History: None Reported - Past Family History Mother Family Medical History: No Reported History Medications and Allergies Home Medications Medication Instructions Recorded Confirmed Type Enalapril [Vasotec] 2.5 mg PO BID 09/23/14 10/02/24 History Pravastatin Sodium [Pravachol] 40 mg PO HS 09/23/14 10/02/24 History Rivaroxaban [Xarelto] 20 mg PO DAILY 04/10/23 10/02/24 History Ondansetron Odt [Zofran Odt] 4 mg PO Q8HR PRN 10/02/24 10/02/24 History Sulfamethox-Tmp 800-160Mg [Bactrim 1 tab PO Q12HR 10/02/24 10/02/24 History DS 800-160 mg] Vitamin D3 (Unknown Strength) 1 dose PO DAILY 10/02/24 10/02/24 History metFORMIN HCL 1,000 mg PO DAILY 10/02/24 10/02/24 History Allergies Allergy/AdvReac Type Severity Reaction Status Date / Time No Known Allergies Allergy Verified 10/02/24 12:27 Physical Exam Vitals: Vital Signs Temp Pulse Resp BP Pulse Ox 10/02/24 12:41 98.6 F 95 16 114/57 95 10/02/24 10:40 92 10/02/24 10:32 98.6 F 91 18 113/59 95 Intake and Output 10/01/24 10/02/24 10/02/24 22:59 06:59 14:59 Other: Weight 53.977 kg Results CBC & Chem 7: 10/02/24 10:54 10/02/24 10:54 Labs: Abnormal Lab Results - Last 24 Hours (Table) 10/02/24 10/02/24 Range/Units 10:54 10:54 Lymphocytes # 0.5 L (1.0-4.8) k/uL Sodium 134 L (137-145) mmol/L Carbon Dioxide 31 H (22-30) mmol/L Glucose 120 H (74-99) mg/dL Total Protein 6.2 L (6.3-8.2) g/dL
[2024-10-02] MEDS: IV FLUID CONTINUATION 1,000 ML IV ONE (15:40)
[2024-10-02 15:54] LABS: Glucose,Whole Blood 105 mg/dL (70-110)
[2024-10-02] MEDS: ONDANSETRON 4 MG/2 ML VIAL IVP PRN (15:57)
[2024-10-02] MEDS ORDERED: MIDAZOLAM 2 MG/2 ML VIAL ONE (16:45)
[2024-10-02] MEDS ORDERED: PROPOFOL 10 MG/ML 20 ML VIAL IV ONE (16:45)
[2024-10-02] MEDS ORDERED: fentaNYL (PF) 50 MCG/ML 2 ML AMP ONE (16:45)
--- NOTE | 2024-10-02 16:59 | P.GSCN ---
History of Present Illness Consult date: 10/02/24 Reason for Consult: Left ureteral calculus, UTI Requesting physician: Osmar Conway History of present illness: The patient is an 89-year-old white female with a history of kidney stones. Beginning on September 29, she experienced abdominal pain, nausea, and vomiting. She denied dysuria. She presented to an urgent care center on September 30 and was diagnosed with a UTI. She was placed on an antibiotic, but she failed to improve and was thus evaluated in the ER at [facility]. Her temperature at that time was [address] scan showed left hydronephrosis due to an 11 x 6 mm left distal ureteral calculus, along with an additional 3 mm left distal ureteral calculus was seen. The CT scan report also shows mild right hydronephrosis (stable since 2021), and multiple bilateral confluent renal calculi measuring up to 15 mm on the right and 22 mm on the left. Urinalysis showed positive nitrates, and the patient was somewhat hypotensive when evaluated. She was placed on cefepime and transferred to [facility] for further management. 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 cataracts removed, repair of hole Lt. retina, lithotripsy w/ stents 03/2023 Past Anesthesia/Blood Transfusion Reactions: No Reported Reaction Date of Last Stent Placement:: 2011 Past Psychological History: No Psychological Hx Reported Smoking Status: Never smoker Past Alcohol Use History: Rare Past Drug Use History: None Reported - Past Family History Mother Family Medical History: No Reported History Medications and Allergies Home Medications Medication Instructions Recorded Confirmed Type Enalapril [Vasotec] 2.5 mg PO BID 09/23/14 10/02/24 History Pravastatin Sodium [Pravachol] 40 mg PO HS 09/23/14 10/02/24 History Rivaroxaban [Xarelto] 20 mg PO DAILY 04/10/23 10/02/24 History Ondansetron Odt [Zofran Odt] 4 mg PO Q8HR PRN 10/02/24 10/02/24 History Sulfamethox-Tmp 800-160Mg [Bactrim 1 tab PO Q12HR 10/02/24 10/02/24 History DS 800-160 mg] Vitamin D3 (Unknown Strength) 1 dose PO DAILY 10/02/24 10/02/24 History metFORMIN HCL 1,000 mg PO DAILY 10/02/24 10/02/24 History Allergies Allergy/AdvReac Type Severity Reaction Status Date / Time No Known Allergies Allergy Verified 10/02/24 12:27 Surgical - Exam Vital Signs Temp Pulse Resp BP Pulse Ox 98.6 F 91 18 113/59 95 10/02/24 10:32 10/02/24 10:32 10/02/24 10:32 10/02/24 10:32 10/02/24 10:32 - General well developed, well nourished, no distress - Respiratory normal respiratory effort - Abdomen Abdomen: soft, non tender, no guarding, no rigid, no rebound - Psychiatric oriented to time, oriented to person, oriented to place, speech is normal, memory intact Results - Labs 10/02/24 10:54 10/02/24 10:54 Abnormal Lab Results - Last 24 Hours (Table) 10/02/24 10/02/24 10/02/24 Range/Units 10:54 10:54 14:36 Lymphocytes # 0.5 L (1.0-4.8) k/uL Sodium 134 L (137-145) mmol/L Carbon Dioxide 31 H (22-30) mmol/L Glucose 120 H (74-99) mg/dL Total Protein 6.2 L (6.3-8.2) g/dL Urine Appearance Turbid H (Clear) Ur Specific Rumsey 1.047 H (1.001-1.035) Urine Protein 1+ H (Negative) Urine Ketones Trace H (Negative) Urine Blood Large H (Negative) Ur Leukocyte Esterase Trace H (Negative) Urine RBC >182 H (0-5) /hpf Urine WBC 25 H (0-5) /hpf Urine Bacteria Few H (None) /hpf Urine Mucus Moderate H (None) /hpf Diabetes panel 10/02/24 Range/Units 10:54 Sodium 134 L (137-145) mmol/L Potassium 4.5 (3.5-5.1) mmol/L Chloride 99 (98-107) mmol/L Carbon Dioxide 31 H (22-30) mmol/L BUN 17 (7-17) mg/dL Creatinine 0.64 (0.52-1.04) mg/dL Glucose 120 H (74-99) mg/dL Calcium 9.3 (8.4-10.2) mg/dL AST 21 (14-36) U/L ALT 17 (4-34) U/L Alkaline Phosphatase 49 (38-126) U/L Total Protein 6.2 L (6.3-8.2) g/dL Albumin 3.7 (3.5-5.0) g/dL Calcium panel 10/02/24 Range/Units 10:54 Calcium 9.3 (8.4-10.2) mg/dL Albumin 3.7 (3.5-5.0) g/dL Pituitary panel 10/02/24 Range/Units 10:54 Sodium 134 L (137-145) mmol/L Potassium 4.5 (3.5-5.1) mmol/L Chloride 99 (98-107) mmol/L Carbon Dioxide 31 H (22-30) mmol/L BUN 17 (7-17) mg/dL Creatinine 0.64 (0.52-1.04) mg/dL Glucose 120 H (74-99) mg/dL Calcium 9.3 (8.4-10.2) mg/dL Adrenal panel 10/02/24 Range/Units 10:54 Sodium 134 L (137-145) mmol/L Potassium 4.5 (3.5-5.1) mmol/L Chloride 99 (98-107) mmol/L Carbon Dioxide 31 H (22-30) mmol/L BUN 17 (7-17) mg/dL Creatinine 0.64 (0.52-1.04) mg/dL Glucose 120 H (74-99) mg/dL Calcium 9.3 (8.4-10.2) mg/dL Total Bilirubin 0.7 (0.2-1.3) mg/dL AST 21 (14-36) U/L ALT 17 (4-34) U/L Alkaline Phosphatase 49 (38-126) U/L Total Protein 6.2 L (6.3-8.2) g/dL Albumin 3.7 (3.5-5.0) g/dL - Imaging CT scan - abdomen: image reviewed Assessment and Plan (1) Hydronephrosis with renal and ureteral calculous obstruction Current Visit: No Status: Acute Code(s): N13.2 - HYDRONEPHROSIS WITH RENAL AND URETERAL CALCULOUS OBSTRUCTION SNOMED Code(s): 344545112 (2) Acute pyelonephritis Current Visit: Yes Status: Acute Code(s): N10 - ACUTE PYELONEPHRITIS SN ED Code(s): 15414260 Plan: Cystoscopy, left ureteral stent insertion. The rationale for the procedure has been reviewed in detail with the patient, and she is aware of risks which include anesthesia, ureteral injury, and inability to place a stent. She will continue to be treated with antibiotics. Ultimately, I intend to review the CT scan to determine how to manage her renal calculi. Time with Patient: Greater than 30
--- NOTE | 2024-10-02 17:23 | P.OP ---
Date of Procedure: 10/02/24 Preoperative Diagnosis: Left hydronephrosis secondary to obstructing left ureteral calculi Postoperative Diagnosis: Same Procedure(s) Performed: Cystoscopy, left ureteral stent insertion Anesthesia: MAC Surgeon: Rolly Carvajal Estimated Blood Loss (ml): 0 IV fluids (ml): 300 Pathology: none sent Condition: stable Disposition: PACU Indications for Procedure: The patient is an 89-year-old white female with a history of kidney stones. Beginning on September 29, she experienced abdominal pain, nausea, and vomiting. She denied dysuria. She presented to an urgent care center on September 30 and was diagnosed with a UTI. She was placed on an antibiotic, but she failed to improve and was thus evaluated in the ER at [facility]. Her temperature at that time was [address] scan showed left hydronephrosis due to an 11 x 6 mm left distal ureteral calculus, along with an additional 3 mm left distal ureteral calculus was seen. The CT scan report also shows mild right hydronephrosis (stable since 2021), and multiple bilateral confluent renal jun culi measuring up to 15 mm on the right and 22 mm on the left. Urinalysis showed positive nitrates, and the patient was somewhat hypotensive when evaluated. She was placed on cefepime and transferred to [facility] for further management. She now comes for emergent left ureteral stent placement. Operative Findings: Successful left ureteral stent insertion. Description of Procedure: The patient was taken to the operating room and placed in the dorsolithotomy position, with legs supported in Sarthak stirrups. The external genitalia was prepped and draped sterilely. The introitus was very narrowed. The 30 lens was used to introduce the 22-Malaysian Stortz cystoscopic sheath through the urethra and into the bladder under direct vision. The bladder was examined in its entirety. Visualization was poor, with blood-tinged urine, and the bladder was thus irrigated several times. Cystoscopy could then be performed. Both ureteral orifices were of normal anatomic location and configuration. There appeared to be blood staining of the mucosa surrounding the left ureteral orifice. No tumors or foreign bodies were seen. A 0.035 inch sensor wire was passed through the cystoscope. The left ureteral orifice was cannulated, and the Glidewire was slowly advanced up to the renal pelvis. A 22 cm, 6-Malaysian double-J ureteral stent was placed over the wire. Proper stent positioning was verified fluoroscopically and endoscopically. Fluoroscopy revealed retained contrast within the left intrarenal collecting system. After placing the stent, a "hydronephrotic pineda" was noted as blood-tinged urine drained through the stent. With the beak of the cystoscope immediately adjacent to the stent, urine was collected and sent for culture and sensitivity. The bladder was emptied and the cystoscope removed. The patient tolerated the procedure well and was taken to the recovery room in stable condition.
[2024-10-02 17:56] LABS: Glucose,Whole Blood 92 mg/dL (70-110)
[2024-10-02] MEDS: INSULIN LISPRO (HumaLOG) 100 UNIT/ML 10 mL VL SQ SCH (18:21)
[2024-10-02] MEDS: lisinopriL 10 MG TAB PO SCH (18:21)
[2024-10-02 20:58] LABS: Glucose,Whole Blood 133 mg/dL (70-110)
[2024-10-02] MEDS: PRAVASTATIN SODIUM 40 MG TAB PO SCH (21:25)
--- NOTE | 2024-10-02 21:37 | FL ---
EXAMINATION TYPE: FL guidance operating room DATE OF EXAM: 10/02/2024 5:38 PM COMPARISON: Previous study 2022. CLINICAL INDICATION: Female, 89 years old with history of LT sided stent insert; TECHNIQUE: FL guidance operating room, multiple fluoroscopic images provided for procedure. Total fluoroscopy time: 5.48 seconds Total submitted images to PACS: 6 DAP: 1.69 mGym2 Gycm2 uGym2 cGycm2 or equivalent. FINDINGS: Fluoroscopic images demonstrate left ureteral stent. IMPRESSION: 1. Intraoperative fluoroscopic images for left ureteral stent placement. 2. Please see the operative/procedural note for further details. [facility], , 10/02/2024 9:34 PM
--- NOTE | 2024-10-02 23:29 | P.CONS ---
History of Present Illness - Reason for Consult Consult date: 10/02/24 Septic kidney stone Requesting physician: Zo Castle - Chief Complaint Flank pain x 1 day - History of Present Illness Patient is a 89-year-old female with a past medical history significant for diabetes mellitus hypertension hyperlipidemia initially presente d to [facility] concerning for left flank pain that apparently started the day before presentation to hospital patient has been describing her pain to be sharp moderate intensity without any radiation did have some burning of urine but no hematuria patient was evaluated initially after witnessed hospital the patient did have a CT concerning for a distal left ureteral stone causing hydronephrosis for the patient was transferred to [facility] for further evaluation patient apparently did have fever at that facility that was treated with Tylenol antibiotic on presentation at this facility patient was afebrile patient was tachycardic but not hypotensive or hypoxic did have white count 6.7 creatinine 0.64 urine has been positive blood urine culture obtained which are currently pending patient is treated with Rocephin 2 g daily infectious he was consulted for septic kidney stone Review of Systems Positive point and negatives has been mentioned in the HPI, complete review of systems was performed and all other systems are negative Past Medical History Past Medical History: Diabetes Mellitus, Eye Disorder, Hyperlipidemia, Hypertension Additional Past Medical History / Comment(s): change in bowel habits, loss of appetite, 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 cataracts removed, repair of hole Lt. retina, lithotripsy w/ stents 03/2023 Past Anesthesia/Blood Transfusion Reactions: No Reported Reaction Date of Last Stent Placement:: 2011 Past Psychological History: No Psychological Hx Reported Smoking Status: Never smoker Past Alcohol Use History: Rare Past Drug Use History: None Reported - Past Family History Mother Family Medical History: No Reported History Medications and Allergies Home Medications Medication Instructions Recorded Confirmed Type Enalapril [Vasotec] 2.5 mg PO BID 09/23/14 10/02/24 History Pravastatin Sodium [Pravachol] 40 mg PO HS 09/23/14 10/02/24 History Rivaroxaban [Xarelto] 20 mg PO DAILY 04/10/23 10/02/24 History Ondansetron Odt [Zofran Odt] 4 mg PO Q8HR PRN 10/02/24 10/02/24 History Sulfamethox-Tmp 800-160Mg [Bactrim 1 tab PO Q12HR 10/02/24 10/02/24 History DS 800-160 mg] Vitamin D3 (Unknown Strength) 1 dose PO DAILY 10/02/24 10/02/24 History metFORMIN HCL 1,000 mg PO DAILY 10/02/24 10/02/24 History Allergies Allergy/AdvReac Type Severity Reaction Status Date / Time No Known Allergies Allergy Verified 10/02/24 12:27 Physical Exam Vitals: Vital Signs Temp Pulse Resp BP Pulse Ox 10/02/24 12:41 98.6 F 95 16 114/57 95 10/02/24 10:40 92 10/02/24 10:32 98.6 F 91 18 113/59 95 Intake and Output 10/01/24 10/02/24 10/02/24 22:59 06:59 14:59 Other: Weight 53.977 kg GENERAL DESCRIPTION: Elderly female lying in bed, no distress. No tachypnea or accessory muscle of respiration use. HEENT: Shows Pallor , no scleral icterus. Oral mucous membrane is dry. NECK: Trachea central, no thyromegaly. LUNGS: Unlabored breathing. Clear to auscultation anteriorly. No wheeze or crackle. HEART: S1, S2, regular rate and rhythm. No loud murmur ABDOMEN: Soft, no tenderness , EXTREMITIES: No edema of feet. SKIN: No rash, no masses palpable. NEUROLOGICAL: The patient is awake, alert, oriented x3, mood and affect normal. Results CBC & Chem 7: 10/03/24 05:22 10/03/24 05:22 Labs: Abnormal Lab Results - Last 24 Hours (Table) 10/02/24 10/02/24 Range/Units 10:54 10:54 Lymphocytes # 0.5 L (1.0-4.8) k/uL Sodium 134 L (137-145) mmol/L Carbon Dioxide 31 H (22-30) mmol/L Glucose 120 H (74-99) mg/dL Total Protein 6.2 L (6.3-8.2) g/dL Assessment and Plan (1) Acute pyelonephritis Current Visit: Yes Status: Acute Code(s): N10 - ACUTE PYELONEPHRITIS SNOMED Code(s): 63628322 Plan: 1patient presented hospital with sepsis in this patient did have fever tachyc ardia meeting currently for SIRS source is left-sided pyelonephritis with a complicated UTI has been did have obstructive kidney will need to cover for the enteric gram-negative to be the likely pathogen 2-await urology evaluation for cystoscopy and left ureteral stent placement 3-blood and urine cultures will be followed 4-patient be treated with Rocephin while waiting for the culture to finalize We will follow on clinical condition and cultures to further adjust medication if needed Thank you for this consultation we will follow the patient along with you Dictation was produced using [employer] dictation software. please excuse any grammatical, word or spelling errors. Time with Patient: Greater than 30
[2024-10-03 06:21] LABS: Glucose,Whole Blood 99 mg/dL (70-110)
[2024-10-03 08:29] LABS: Basophils # (A) 0.05 X 10*3/uL (0.00-0.10); Basophils % (A) 0.8 %; Eosinophils # (A) 0.26 X 10*3/uL (0.04-0.35); Eosinophils % (A) 4.2 %; HCT 40.7 % (37.2-46.3); HGB 12.5 g/dL (12.0-15.0); Lymphocytes # (A) 0.86 X 10*3/uL (0.90-5.00); Lymphocytes % (A) 14.1 %; MCH 30.4 pg (27.0-32.0); MCHC 30.7 g/dL (32.0-37.0); Mean Platelet Volume 9.9 FL (9.5-12.2); Monocytes # (A) 0.54 X 10*3/uL (0.20-1.00); Monocytes % (A) 8.8 %; NRBC Per 100 WBC 0 X 10*3/uL (0.00-0.01); Neutrophils # (A) 4.39 X 10*3/uL (1.80-7.70); Neutrophils % (A) 71.8 %; Platelet Count 245 X 10*3/uL (140-440); RBC 4.11 X 10*6/uL (4.10-5.20); RDW 13.5 % (11.5-14.5); WBC 6.12 X 10*3/uL (4.50-10.00)
[2024-10-03 08:34] LABS: BUN/Creat Ratio 18.43 Ratio (12.00-20.00); Blood Urea Nitrogen 12.9 mg/dL (9.0-27.0); Calcium 8.4 mg/dL (8.7-10.3); Carbon Dioxide 26.6 mmol/L (21.6-31.8); Chloride 101 mmol/L (96-109); Glucose 95 mg/dL (70-110); Potassium 4.4 mmol/L (3.5-5.5); Sodium 136 mmol/L (135-145)
[2024-10-03 11:52] LABS: Glucose,Whole Blood 96 mg/dL (70-110)
--- NOTE | 2024-10-03 13:44 | P.PN ---
Subjective Progress Note Date: 10/03/24 89 year old F with PMH of A-Fib, HTN, DM, HLD, h/o renal stones presents to [facility] as a transfer from [facility]. She reports nausea and vomiting that started on Monday. Shortly after, she experienced abdominal pain. Pain described and dull in nature, RLQ, intermittent with no radiation. She denies any dysuria. She went to urgent care on Monday and was diagnosed with UTI. She was started on antibiotics. Symptoms persisted which prompted her to come to the ED. She reports a Tmax of 101F at [facility]. CT confirmed 11 x 6 mm and 3 mm calculus in the left distal ureter. UA concerning for infection. Patient was started on Cefepime and transferred for Urology evaluation. In the ED she und erwent extensive evaluation. BP 113/59, HR 91, T 98.6F, RR 18, 95% on RA. CBC, CMP significant for Na 134, bicarb 31, glu 120, total protein 6.2. Lactic acid 1.1. Patient is admitted for further workup and management. Underwent cystoscopy, left ureteral stent insertion with Dr. Carvajal on 10/02. 10/03 Patient was seen and examined. Feeling well. N/V, abdominal pain resolved. I attempted to call [facility], no cultures were obtained there. Awaiting BCx and UCx. Maintained on Rocephin 2g IV QD. CBC and BMP significant for MCV 99, Ca 8.4. General: non toxic, no distress, appears at stated age Derm: warm, dry Head: atraumatic, normocephalic, symmetric Mouth: no lip lesion, mucus membranes moist Cardiovascular: S1S2 reg, no murmur Lungs: Decreased BS bilaterally, no rales , no accessory muscle use Ext: no gross muscle atrophy, no edema, no contractures Neuro: no focal neuro deficits Psych: Alert and oriented. Based on my assessment of this patient, this patient meets a high complexity level of care. Urethral stone: Underwent cystoscopy, left ureteral stent insertion with Dr. Miya mckeon on 10/02. Urology on board. Sepsis secondary to UTI: Rocephin 2g IV QD. Obtain UCx + BCx. NS at 75 cc/hr. Telemetry monitoring. ID on board. Atrial fibrillation: Restart Xarelto 20 mg PO QD tomorrow. Hypertension: Enalapril 2.5 mg PO BID. Diabetes mellitus: ISS with Accuchecks ACHS and hypoglycemic precautions. Dyslipidemia: Pravastatin 40 mg PO QHS. CODE STATUS: FULL CODE. DVT Prophylaxis: Xarelto GI Prophylaxis: Designated medical POA if patient is not able to make medical decisions for t hemselves: Son I have reviewed the following implementation consultant notes: Urology, ID note. I have reviewed the results of the following tests: CBC, BMP. I have ordered the following tests: I have discussed the care of this patient with the following independent historian: I have independently interpreted the following test below: I have discussed the management of this patient with the following physician: Objective - Vital Signs Vital signs: Vital Signs Temp 98.4 F 10/03/24 07:41 Pulse 101 H 10/03/24 07:41 Resp 17 10/03/24 07:41 BP 95/56 10/03/24 07:41 Pulse Ox 98 10/03/24 07:41 FiO2 Intake & Output 10/02/24 10/03/24 10/03/24 18:59 06:59 18:59 Intake Total 1350 2130 Output Total 0 350 Balance 1350 2130 -350 Weight 53.977 kg 53.977 kg Intake: IV 1350 Oral 2130 Output: Urine 350 Estimated Blood Loss 0 Other: Voiding Method Toilet # Voids 5 # Bowel Movements 1 - Labs CBC & Chem 7: 10/03/24 05:22 10/03/24 05:22 Labs: Abnormal Lab Results - Last 24 Hours (Table) 10/02/24 10/02/24 10/03/24 Range/Units 14:36 20:56 05:22 MCV 99.0 H (80.0-97.0) FL MCHC 30.7 L (32.0-37.0) g/dL Lymphocytes # 0.86 L (0.90-5.00) X 10*3/uL POC Glucose (mg/dL) 133 H (70-110) mg/dL Calcium (8.7-10.3) mg/dL Urine Appearance Turbid H (Clear) Ur Specific [place] 1.047 H (1.001-1.035) Urine Protein 1+ H (Negative) Urine Ketones Trace H (Negative) Urine Blood Large H (Negative) Ur Leukocyte Esterase Trace H (Negative) Urine RBC >182 H (0-5) /hpf Urine WBC 25 H (0-5) /hpf Urine Bacteria Few H (None) /hpf Urine Mucus Moderate H (None) /hpf 10/03/24 Range/Units 05:22 MCV (80.0-97.0) FL MCHC (32.0-37.0) g/dL Lymphocytes # (0.90-5.00) X 10*3/uL POC Glucose (mg/dL) (70-110) mg/dL Calcium 8.4 L (8.7-10.3) mg/dL Urine Appearance (Clear) Ur Specific [place] (1.001-1.035) Urine Protein (Negative) Urine Ketones (Negative) Urine Blood (Negative) Ur Leukocyte Esterase (Negative) Urine RBC (0-5) /hpf Urine WBC (0-5) /hpf Urine Bacteria (None) /hpf Urine Mucus (None) /hpf
[2024-10-03] MEDS: SODIUM CHLORIDE 0.9% 1,000 ML IV ONE (14:38)
--- NOTE | 2024-10-03 14:45 | P.PN ---
Subjective Progress Note Date: 10/03/24 Principal diagnosis: Reason for follow-up is left sided pyelonephritis Patient is a 89-year-old female with a past medical history significant for diabetes mellitus hypertension hyperlipidemia initially presented to [facility] concerning for left flank pain has been diagnosed with a left ureteral stone and hydronephrosis for the patient was transferred to this facility patient is status post cystoscopy and left ureteral stent placement on 10/02/2024. On today's evaluation that is 10/03/2024,the patient remains to be afebrile, patient is on room air not requiring supplemental oxygen and denies any shortness of breath no chest pain or cough.Patient denies having any nausea or vomiting, mention improvement in flank pain and no diarrhea. Patient white count 6.12 creatinine 0.7 Objective - Vital Signs Vital signs: Vital Signs Temp 98.4 F 10/03/24 07:41 Pulse 101 H 10/03/24 07:41 Resp 17 10/03/24 07:41 BP 95/56 10/03/24 07:41 Pulse Ox 98 10/03/24 07:41 FiO2 Intake & Output 10/02/24 10/03/24 10/03/24 18:59 06:59 18:59 Intake Total 1350 2130 Output Total 0 350 Balance 1350 2130 -350 Weight 53.977 kg 53.977 kg Intake: IV 1350 Oral 2130 Output: Urine 350 Estimated Blood Loss 0 Other: Voiding Method Toilet # Voids 5 # Bowel Movements 1 - Exam GENERAL DESCRIPTION: An elderly female up in the chair in no distress RESPIRATORY SYSTEM: Unlabored breathing , decreased breath sounds at bases HEART: S1 S2 regular rate and rhythm , ABDOMEN: Soft , no tenderness EXTREMITIES: No edema feet - Labs CBC & Chem 7: 10/03/24 05:22 10/03/24 05:22 Labs: Abnormal Lab Results - Last 24 Hours (Table) 10/02/24 10/02/24 10/03/24 Range/Units 14:36 20:56 05:22 MCV 99.0 H (80.0-97.0) FL MCHC 30.7 L (32.0-37.0) g/dL Lymphocytes # 0.86 L (0.90-5.00) X 10*3/uL POC Glucose (mg/dL) 133 H (70-110) mg/dL Calcium (8.7-10.3) mg/dL Urine Appearance Turbid H (Clear) Ur Specific [place] 1.047 H (1.001-1.035) Urine Protein 1+ H (Negative) Urine Ketones Trace H (Negative) Urine Blood Large H (Negative) Ur Leukocyte Esterase Trace H (Negative) Urine RBC >182 H (0-5) /hpf Urine WBC 25 H (0-5) /hpf Urine Bacteria Few H (None) /hpf Urine Mucus Moderate H (None) /hpf 10/03/24 Range/Units 05:22 MCV (80.0-97.0) FL MCHC (32.0-37.0) g/dL Lymphocytes # (0.90-5.00) X 10*3/uL POC Glucose (mg/dL) (70-110) mg/dL Calcium 8.4 L (8.7-10.3) mg/dL Urine Appearance (Clear) Ur Specific [place] (1.001-1.035) Urine Protein (Negative) Urine Ketones (Negative) Urine Blood (Negative) Ur Leukocyte Esterase (Negative) Urine RBC (0-5) /hpf Urine WBC (0-5) /hpf Urine Bacteria (None) /hpf Urine Mucus (None) /hpf Assessment and Plan (1) Acute pyelonephritis Current Visit: Yes Status: Acute Code(s): N10 - ACUTE PYELONEPHRITIS SNOMED Code(s): 39137137 Plan: 1patient presented hospital with sepsis in this patient did have fever ta chycardia meeting currently for SIRS source is left-sided pyelonephritis with a complicated UTI has been did have obstructive kidney will need to cover for the enteric gram-negative to be the likely pathogen 2-patient is status post cystoscopy and left ureteral stent placement completed on 10/02/2024 3-blood and urine cultures are currently pending 4-patient continue with Rocephin while waiting for the culture to finalize Dictation was produced using [employer] dictation software. please excuse any grammatical, word or spelling errors.
--- NOTE | 2024-10-03 15:26 | XR ---
EXAMINATION TYPE: XR chest 1V portable DATE OF EXAM: 10/03/2024 3:08 PM COMPARISON: Chest radiographs from 10/02/2024. CLINICAL INDICATION: Female, 89 years old with history of sepsis; [facility] TECHNIQUE: XR chest 1V portable Frontal view of the chest. FINDINGS: Lungs/Pleura: There is no evidence of pleural effusion, focal consolidation, or pneumothorax. Pulmonary vascularity: Unremarkable. Heart/mediastinum: Cardiomediastinal silhouette is unremarkable. Musculoskeletal: No acute osseous pathology. IMPRESSION: No evidence for focal airspace consolidation. Blunting the costophrenic angles correlate for pleural effusions. [facility], , 10/03/2024 3:24 PM
--- NOTE | 2024-10-03 16:16 | P.PN ---
Subjective Progress Note Date: 10/03/24 Principal diagnosis: Left hydronephrosis secondary to left ureteral calculi, UTI Patient presented with right sided abdominal pain and was noted to be febrile. Urinalysis was consistent with a UTI, and CT scan showed evidence of left hydronephrosis due to left distal ureteral calculi. Bilateral large renal calculi were also seen. She underwent cystoscopy with left ureteral stent insertion in October 02, 2024. She is currently receiving Rocephin, pending urine culture results. She experienced some nausea after lunch today, but otherwise feels well. She has been noted to be somewhat hypotensive and was given a fluid bolus. Objective - Vital Signs Vital signs: Vital Signs Temp 98.4 F 10/03/24 07:41 Pulse 101 H 10/03/24 07:41 Resp 17 10/03/24 07:41 BP 95/56 10/03/24 07:41 Pulse Ox 98 10/03/24 07:41 FiO2 Intake & Output 10/02/24 10/03/24 10/03/24 18:59 06:59 18:59 Intake Total 1350 2130 Output Total 0 Balance 1350 2130 Weight 53.977 kg 53.977 kg Intake: IV 1350 Oral 2130 Output: Estimated Blood Loss 0 Other: Voiding Method Toilet # Voids 5 - Constitutional General appearance: Present: average body habitus, cooperative, no acute distress - Psychiatric Psychiatric: Present: A&O x's 3 - Labs CBC & Chem 7: 10/03/24 05:22 10/03/24 05:22 Labs: Abnormal Lab Results - Last 24 Hours (Table) 10/02/24 10/02/24 10/02/24 Range/Units 10:54 10:54 14:36 MCV (80.0-97.0) FL MCHC (32.0-37.0) g/dL Lymphocytes # 0.5 L (1.0-4.8) k/uL Sodium 134 L (137-145) mmol/L Carbon Dioxide 31 H (22-30) mmol/L Glucose 120 H (74-99) mg/dL POC Glucose (mg/dL) (70-110) mg/dL Calcium (8.7-10.3) mg/dL Total Protein 6.2 L (6.3-8.2) g/dL Urine Appearance Turbid H (Clear) Ur Specific [place] 1.047 H (1.001-1.035) Urine Protein 1+ H (Negative) Urine Ketones Trace H (Negative) Urine Blood Large H (Negative) Ur Leukocyte Esterase Trace H (Negative) Urine RBC >182 H (0-5) /hpf Urine WBC 25 H (0-5) /hpf Urine Bacteria Few H (None) /hpf Urine Mucus Moderate H (None) /hpf 10/02/24 10/03/24 10/03/24 Range/Units 20:56 05:22 05:22 MCV 99.0 H (80.0-97.0) FL MCHC 30.7 L (32.0-37.0) g/dL Lymphocytes # 0.86 L (1.0-4.8) k/uL Sodium (137-145) mmol/L Carbon Dioxide (22-30) mmol/L Glucose (74-99) mg/dL POC Glucose (mg/dL) 133 H (70-110) mg/dL Calcium 8.4 L (8.7-10.3) mg/dL Total Protein (6.3-8.2) g/dL Urine Appearance (Clear) Ur Specific [place] (1.001-1.035) Urine Protein (Negative) Urine Ketones (Negative) Urine Blood (Negative) Ur Leukocyte Esterase (Negative) Urine RBC (0-5) /hpf Urine WBC (0-5) /hpf Urine Bacteria (None) /hpf Urine Mucus (None) /hpf Assessment and Plan (1) Hydronephrosis with renal and ureteral calculous obstruction Current Visit: No Status: Acute Code(s): N13.2 - HYDRONEPHROSIS WITH RENAL AND URETERAL CALCULOUS OBSTRUCTION SNOMED Code(s): 552135156 (2) Acute pyelonephritis Current Visit: Yes Status: Acute Code(s): N10 - ACUTE PYELONEPHRITIS SNOMED Code(s): 57677276 Plan: - Continue Rocephin, pending final culture results. If she experiences ongoing episodes of hypotension, consider antibiotic changes.
[2024-10-03 16:35] LABS: Glucose,Whole Blood 104 mg/dL (70-110)
[2024-10-03 20:40] LABS: Glucose,Whole Blood 156 mg/dL (70-110)
[2024-10-04 06:16] LABS: Glucose,Whole Blood 114 mg/dL (70-110)
[2024-10-04] MEDS: RIVAROXABAN 15 MG TAB PO SCH (08:43)
[2024-10-04] MEDS ORDERED: RIVAROXABAN 20 MG TAB PO SCH (09:00)
--- NOTE | 2024-10-04 09:19 | P.PN ---
Subjective Progress Note Date: 10/04/24 Principal diagnosis: Left hydronephrosis secondary to left ureteral calculi, UTI Patient presented with right sided abdominal pain and was noted to be febrile. Urinalysis was consistent with a UTI, and CT scan showed evidence of left hydronephrosis due to left distal ureteral calculi. Bilateral large renal calculi were also seen. She underwent cystoscopy with left ureteral stent insertion in October 02, 2024. Urine and blood cultures are negative. She is currently receiving Rocephin. She is feeling much better and hopes to be discharged home. Objective - Vital Signs Vital signs: Vital Signs Temp 98.2 F 10/04/24 00:16 Pulse 75 10/04/24 00:16 Resp 16 10/04/24 00:16 BP 94/49 10/04/24 00:16 Pulse Ox 91 L 10/04/24 00:16 FiO2 Intake & Output 10/03/24 10/04/24 10/04/24 18:59 06:59 18:59 Intake Total 2380 Output Total 350 Balance 2029 Intake: Intake, IV Titration 1900 Amount Sodium Chloride 0.9% 1, 900 000 ml @ 75 mls/hr IV . [id number] AXEL Rx#:[id number] Sodium Chloride 0.9% 1, 1000 000 ml @ 999 mls/hr IV . Q1H1M ONE Rx#:[id number] Oral 480 Output: Urine 350 Other: Voiding Method Toilet # Voids 2 2 # Bowel Movements 1 - Constitutional General appearance: Present: average body habitus, cooperative, no acute distress - Psychiatric Psychiatric: Present: A&O x's 3 - Labs CBC & Chem 7: 10/03/24 05:22 10/03/24 05:22 Labs: Abnormal Lab Results - Last 24 Hours (Table) 10/03/24 10/03/24 10/03/24 Range/Units 05:22 05:22 20:38 MCV 99.0 H (80.0-97.0) FL MCHC 30.7 L (32.0-37.0) g/dL Lymphocytes # 0.86 L (0.90-5.00) X 10*3/uL POC Glucose (mg/dL) 156 H (70-110) mg/dL Calcium 8.4 L (8.7-10.3) mg/dL 10/04/24 Range/Units 06:14 MCV (80.0-97.0) FL MCHC (32.0-37.0) g/dL Lymphocytes # (0.90-5.00) X 10*3/uL POC Glucose (mg/dL) 114 H (70-110) mg/dL Calcium (8.7-10.3) mg/dL Microbiology - Last 24 Hours (Table) 10/02/24 17:22 Urine Culture - Final Urine,Voided 10/02/24 11:33 Blood Culture - Preliminary Blood 10/02/24 14:36 Urine Culture - Final Urine,Voided Assessment and Plan Assessment: Urine and blood cultures are negative. Urinalysis at [facility] prior to transfer showed positive leukocyte esterase and positive nitrates, consistent with UTI, but a urine culture was not obtained. She did receive cefepime prior to transfer, and therefore the cultures obtained here at [facility] may be falsely negative. (1) Hydronephrosis with renal and ureteral calculous obstruction Current Visit: No Status: Acute Code(s): N13.2 - HYDRONEPHROSIS WITH RENAL AND URETERAL CALCULOUS OBSTRUCTION SNOMED Code(s): 023900364 (2) Acute pyelonephritis Current Visit: Yes Status: Acute Code(s): N10 - ACUTE PYELONEPHRITIS SNOMED Code(s): 32984700 Plan: I believe it would be reasonable for Mrs. Gonzales to be discharged home on empiric broad-spectrum antibiotics. She will follow-up with me in 3 weeks. I have reviewed her CT scan, which indeed shows bilateral large renal calculi. The calculi may be of struvite composition. If her UTI recurs following a course of antibiotics, a urine culture will be obtained to determine whether she might have a Proteus UTI.
[2024-10-04 11:22] LABS: Glucose,Whole Blood 119 mg/dL (70-110)
--- NOTE | 2024-10-04 15:14 | P.PN ---
Subjective Progress Note Date: 10/04/24 Principal diagnosis: Reason for follow-up is left sided pyelonephritis Patient is a 89-year-old female with a past medical history significant for diabetes mellitus hypertension hyperlipidemia initially presented to [facility] concerning for left flank pain has been diagnosed with a left ureteral stone and hydronephrosis for the patient was transferred to this facility patient is status post cystoscopy and left ureteral stent placement on 10/02/2024. On today's evaluation that is 10/04/2024, the patient continues to be afebrile, the patient is on room air and breathing comfortably, the Pt denies having any chest pain or cough, the patient denies having any abdominal pain no vomiting or any diarrhea and mentioning feeling better. No new labs has been obtained today culture have been negative so far Objective - Vital Signs Vital signs: Vital Signs Temp 99 F 10/04/24 12:16 Pulse 78 10/04/24 12:16 Resp 17 10/04/24 12:16 BP 101/60 10/04/24 12:16 Pulse Ox 91 L 10/04/24 12:16 FiO2 Intake & Output 10/03/24 10/04/24 10/04/24 18:59 06:59 18:59 Intake Total 2380 50 Output Total 350 Balance 2029 50 Intake: Intake, IV Titration 1900 50 Amount Sodium Chloride 0.9% 1, 900 000 ml @ 75 mls/hr IV . [id number] [facility] Rx#:[id number] Sodium Chloride 0.9% 1, 1000 000 ml @ 999 mls/hr IV . Q1H1M ONE Rx#:[id number] cefTRIAXone 2 gm In 50 Sodium Chloride 0.9% 50 ml @ 100 mls/hr IVPB Q24HR [facility] Rx#:[id number] Oral 480 Output: Urine 350 Other: Voiding Method Toilet Toilet # Voids 2 2 # Bowel Movements 1 - Exam GENERAL DESCRIPTION: An elderly female up in the chair in no distress RESPIRATORY SYSTEM: Unlabored breathing , decreased breath sounds at bases HEART: S1 S2 regular rate and rhythm , ABDOMEN: Soft , no tenderness EXTREMITIES: No edema feet - Labs CBC & Chem 7: 10/03/24 05:22 10/03/24 05:22 Labs: Abnormal Lab Results - Last 24 Hours (Table) 10/03/24 10/04/24 10/04/24 Range/Units 20:38 06:14 11:20 POC Glucose (mg/dL) 156 H 114 H 119 H (70-110) mg/dL Microbiology - Last 24 Hours (Table) 10/02/24 17:22 Urine Culture - Final Urine,Voided 10/02/24 11:33 Blood Culture - Preliminary Blood 10/02/24 14:36 Urine Culture - Final Urine,Voided Assessment and Plan (1) Acute pyelonephritis Current Visit: Yes Status: Acute Code(s): N10 - ACUTE PYELONEPHRITIS SNOMED Code(s): 22185452 Plan: 1patient presented hospital with sepsis in this patient did have fever tachycardia meeting currently for SIRS source is left-sided pyelonephritis with a complicated UTI has been did have obstructive kidney will need to cover for the enteric gram-negative to be the likely pathogen 2-patient is status post cystoscopy and left ureteral stent placement completed on 10/02/2024 3-blood and urine cultures has been negative so far 4-patient seem to have clinically responded to Rocephin will finish therapy with oral Ceftin prescription sent to the pharmacy Dictation was produced using [employer] dictation software. please excuse any grammatical, word or spelling errors.
[2024-10-04 15:28] VITALS: BP 127/63; PULSE 83; RESP 18; TEMP 98.9
--- NOTE | 2024-10-04 19:23 | P.DS ---
Providers Date of admission: 10/02/24 11:11 Expected date of discharge: 10/04/24 Attending physician: Osmar Conway Consults: 10/02/24 11:44 Consult Physician Urgent Consulting Provider: Rolly Carvajal Consult Reason/Comments: septic stone Do you want consulting provider notified?: Already Contacted 10/02/24 11:45 Consult Physician Urgent Consulting Provider: Lisa Ibanez Consult Reason/Comments: septic kidney stone Do you want consulting provider notified?: Yes Primary care physician: Hardeep Muro [facility] Hospital Course: Discharge Diagnosis: Hydronephrosis with renal and ureteral calculous obstruction Acute pyelonephritis Hospital Course: The patient is a 89 year old F with PMH of A-Fib, HTN, DM, HLD, h/o renal stones who presented to [facility] as a transfer from [facility]. She reported nausea and vomiting that started on Monday. Shortly after, she experienced abdominal pain. Pain described and dull in nature, RLQ, intermittent with no radiation. She denies any dysuria. She went to urgent care on Monday and was diagnosed with UTI. She was started on antibiotics. Symptoms persisted which prompted her to come to the ED. She reported a Tmax of 101F at [facility]. CT confirmed 11 x 6 mm and 3 mm calculus in the left distal ureter. UA was concerning for infection. Patient was started on Cefepime and transferred for Urology evaluation. In the ED she underwent extensive evaluation. BP 113/59, HR 91, T 98.6F, RR 18, 95% on RA. CBC, CMP significant for Na 134, bicarb 31, glu 120, total protein 6.2. Lactic acid 1.1. She was maintained on Ceftriaxone She underwent cystoscopy, left ureteral stent insertion with Dr. Carvajal on 10/02. Post procedure, patient was doing well, and clinically improving on Ceftriaxone. Blood and urine cultures remained negative. She was transitioned to Ceftin which she will take for 7 days, and was discharged in stable condition. She is to follow up with Urology (Dr. Carvajal) in 3 weeks for re-evaluation. Patient seen and examined at bedside. Vital signs reviewed and stable. General: [nontoxic], [no distress], [appears at stated age] Derm: [warm], [dry] Head: [atraumatic], [normocephalic], [symmetric] Eyes: [EOMI], [no lid lag], [anicteric sclera] Mouth: [no lip lesion], [mucus membranes moist] Cardiovascular: [S1S2 reg], [no murmur] Lungs: [CTA bilateral], [no rhonchi, no rales] , [no accessory muscle use] Abdominal: no CVA tenderness Ext: [no gross muscle atrophy], [no edema], [no contractures] Neuro: [ CN II-XI grossly intact], [no focal neuro deficits] Psych: [Alert], [oriented], [appropriate affect] A total of 30 minutes of time were spent preparing this complex discharge summary. Patient was discharged on 10/04/2024. Patient Condition at Discharge: Stable Plan - Discharge Summary Discharge Rx Participant: Yes New Discharge Prescriptions: New cefuroxime axetiL [Ceftin] 500 mg PO BID #14 tab Continue Pravastatin Sodium [Pravachol] 40 mg PO HS Enalapril [Vasotec] 2.5 mg PO BID Rivaroxaban [Xarelto] 20 mg PO DAILY metFORMIN HCL 1,000 mg PO DAILY Vitamin D3 (Unknown Strength) 1 dose PO DAILY Discontinued Sulfamethox-Tmp 800-160Mg [Bactrim DS 800-160 mg] 1 tab PO Q12HR Ondansetron Odt [Zofran Odt] 4 mg PO Q8HR PRN PRN Reason: Nausea Discharge Medication List Enalapril [Vasotec] 2.5 mg PO BID 09/23/14 [History] Pravastatin Sodium [Pravachol] 40 mg PO HS 09/23/14 [History] Rivaroxaban [Xarelto] 20 mg PO DAILY 04/10/23 [History] Vitamin D3 (Unknown Strength) 1 dose PO DAILY 10/02/24 [History] metFORMIN HCL 1,000 mg PO DAILY 10/02/24 [History] cefuroxime axetiL [Ceftin] 500 mg PO BID #14 tab 10/04/24 [Rx] Follow up Appointment(s)/Referral(s): Rolly Carvajal MD [STAFF PHYSICIAN] - 3 Weeks Hardeep Talamantes MD [Primary Care Provider] - 1-2 days Discharge Disposition: HOME SELF-CARE
== END 2024-10-04 15:24 | disposition home or self-care (01) | DRG 854 ==
LOC: OR 10:26 → 4SSUR 11:11
PROVIDERS: ADMIT Student in an Organized Health Care Education/Training Program; ATTEND Student in an Organized Health Care Education/Training Program
PROC: 0T778DZ Dilation of Left Ureter with Intraluminal Device, Via Natural or Artificial Opening Endoscopic (ICD-10-PCS; principal; 2024-10-02 09:35)
DX: A41.9 Sepsis, unspecified organism (principal); N13.6 Pyonephrosis; E11.9 Type 2 diabetes mellitus without complications; I10 Essential (primary) hypertension; I48.91 Unspecified atrial fibrillation; E78.5 Hyperlipidemia, unspecified; M81.0 Age-related osteoporosis without current pathological fracture; N21.1 Calculus in urethra; Z79.01 Long term (current) use of anticoagulants; Z79.84 Long term (current) use of oral hypoglycemic drugs; Z79.899 Other long term (current) drug therapy; Z87.442 Personal history of urinary calculi; Z90.710 Acquired absence of both cervix and uterus; Z98.42 Cataract extraction status, left eye; Z98.41 Cataract extraction status, right eye
CPT/HCPCS: 36415; 71045; 80048; 80053; 81001; 83605; 85025; 87040; 87086; 93005; 96361; 96365; 96366; 99285

== ENCOUNTER 2024-11-14 14:32 | Day surgery (SDC) | payer MEDICARE ==
--- NOTE | 2024-11-14 09:03 | P.GSHP ---
History of Present Illness H&P Date: 11/14/24 Chief Complaint: Abdominal pain The patient is an 89-year-old white female with a history of kidney stones. Beginning on September 29, she experienced abdominal pain, nausea, and vomiting. She denied dysuria. She presented to an urgent care center on September 30 and was diagnosed with a UTI. She was placed on an antibiotic, but she failed to improve and was thus evaluated in the ER at [facility]. Her temperature at that time was 101F. CT scan showed left hydronephrosis due to an 11 x 6 mm left distal ureteral calculus, along with an additional 3 mm left distal ureteral calculus was seen. The CT scan report also showed mild right hydronephrosis (stable since 2021), and multiple bilateral confluent renal calculi measuring up to 15 mm on the right and 22 mm on the left. Urinalysis showed positive nitrates, and the patient was somewhat hypotensive when evaluated. She was placed on cefepime and transferred to [facility] for further management. She underwent emergent left ureteral stent insertion. Her condition improved significantly. Urine and blood cultures were negative. Review of her CT scan shows bilateral renal calculi with stone burden which would warrant percutaneous nephrolithotomy, which she hopes to avoid. 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 cataracts removed, repair of hole Lt. retina, lithotripsy w/ stents 03/2023 Past Anesthesia/Blood Transfusion Reactions: No Reported Reaction Date of Last Stent Placement:: 2011 Smoking Status: Never smoker - Past Family History Mother Family Medical History: No Reported History Medications and Allergies Home Medications Medication Instructions Recorded Confirmed Type Enalapril [Vasotec] 2.5 mg PO BID 09/23/14 11/11/24 History Pravastatin Sodium [Pravachol] 40 mg PO HS 09/23/14 11/11/24 History Rivaroxaban [Xarelto] 20 mg PO DAILY 04/10/23 11/11/24 History Vitamin D3 (Unknown Strength) 1 dose PO DAILY 10/02/24 11/11/24 History metFORMIN HCL 1,000 mg PO DAILY 10/02/24 11/11/24 History Unk Multi Vitamin 1 tab PO DAILY 11/11/24 11/11/24 History Allergies Allergy/AdvReac Type Severity Reaction Status Date / Time No Known Allergies Allergy Verified 11/11/24 12:23 Surgical - Exam - General well developed, well nourished, no distress - Respiratory normal respiratory effort - Abdomen Abdomen: soft, non tender, no guarding, no rigid, no rebound - Psychiatric oriented to time, oriented to person, oriented to place, speech is normal, memory intact Results - Imaging CT scan - abdomen: report reviewed, image reviewed Assessment and Plan (1) Calculus of kidney Status: Acute Code(s): N20.0 - CALCULUS OF KIDNEY SNOMED Code(s): 99831385 (2) Calculus of ureter Status: Acute Code(s): N20.1 - CALCULUS OF URETER SNOMED Code(s): 92132315 Plan: Cystoscopy, left ureteral stent removal, left ureteroscopy with Holmium laser lithotripsy and stone basketing. The goal is to remove all ureteral calculi. The patient declines treatment of her renal calculi at this time, but understands that this may be required in the future. She is aware of potential risks, which include anesthesia, bleeding, infection, and ureteral injury.
[~2024-11-14 14:32] MED LIST changes: -DEXAMETHASONE SOD PHOSPHATE 4 MG/ML 1 ML VIAL IV ONE; -LACTATED RINGERS 1,000 ML IV SCH; -LIDOCAINE 1% (10MG/ML) FOR IV START INTRADERMA PRN; -MIDAZOLAM 2 MG/2 ML VIAL IV PRN; -ONDANSETRON 4 MG/2 ML VIAL IVP ONE
[2024-11-14] MEDS: IV FLUID CONTINUATION 1,000 ML IV ONE ×2 (14:51)
[2024-11-14 15:15] VITALS: RESP 16
[2024-11-14 15:16] LABS: Glucose,Whole Blood 93 mg/dL (70-110)
[2024-11-14] MEDS: DEXAMETHASONE SOD PHOSPHATE 4 MG/ML 1 ML VIAL IV ONE (15:16)
[2024-11-14] MEDS: ONDANSETRON 4 MG/2 ML VIAL IVP ONE (15:16)
[2024-11-14] MEDS: LACTATED RINGERS 1,000 ML IV SCH (15:16)
--- NOTE | 2024-11-14 15:48 | XR ---
EXAMINATION TYPE: XR KUB DATE OF EXAM: 11/14/2024 3:40 PM COMPARISON: 05/18/2023 CLINICAL INDICATION: Female, 89 years old with history of kidney stone; PHH, pain. Preoperative exam for left ureteroscopy with stone basketing. TECHNIQUE: One radiographic view of the abdomen was obtained. FINDINGS: Lung bases are clear. No evidence for free intraperitoneal air. Left ureteral stent is pres ent. 5 mm calcification lower pole left kidney. Right ureteral stent removed in the interval. Only sc attered mild stool. Nonobstructive bowel gas pattern. IMPRESSION: Left ureteral stent. 5 mm lower pole left renal stone. [facility], Workstation: [employer][email or web address], 11/14/2024 3:45 PM
[2024-11-14] MEDS ORDERED: SUCCINYLCHOLINE CHLORIDE 200 MG/10 ML VIAL IV ONE (16:17)
[2024-11-14] MEDS ORDERED: PROPOFOL 10 MG/ML 20 ML VIAL IV ONE (16:17)
[2024-11-14] MEDS ORDERED: ePHEDrine 50 MG/ML 1 ML VIAL ONE (16:17)
[2024-11-14] MEDS ORDERED: LIDOCAINE 1% INJ 10MG/ML (20 ML MDV) ONE (16:17)
[2024-11-14] MEDS ORDERED: fentaNYL (PF) 50 MCG/ML 2 ML AMP ONE (16:17)
[2024-11-14] MEDS: ceFAZolin 2 GM in DEXTROSE 5% IN WATER 50 ML IVPB PRN (16:21)
[2024-11-14 17:55] VITALS: TEMP 98.4
[2024-11-14 18:08] LABS: Glucose,Whole Blood 92 mg/dL (70-110)
[2024-11-14 19:00] VITALS: BP 146/74; PULSE 89
--- NOTE | 2024-11-14 20:56 | FL ---
EXAMINATION TYPE: FL guidance operating room DATE OF EXAM: 11/14/2024 FLUOROSCOPY RIGHT SIDE CYSTO LITHO WITH STENT PLACEMENT FL TIME 1.6 SECONDS, DAP [id number], 1 IMAGE SENT INTO PACS, DR ELLINGTON [facility], Workstation: [email or web address], 11/14/2024 8:54 PM
--- NOTE | 2024-11-15 16:30 | P.OP ---
Date of Procedure: 11/15/24 Preoperative Diagnosis: Left ureteral calculi, left renal calculi Postoperative Diagnosis: Same Procedure(s) Performed: Cystoscopy, left ureteroscopy with Holmium laser lithotripsy, left ureteral stent change Anesthesia: GERHARDA Surgeon: Rolly Carvajal Estimated Blood Loss (ml): 5 IV fluids (ml): 400 Pathology: other (Left ureteral calculus fragment) Condition: stable Disposition: PACU Indications for Procedure: The patient is an 89-year-old white female with a history of kidney stones. Beginning on September 29, she experienced abdominal pain, nausea, and vomiting. She denied dysuria. She presented to an urgent care center on September 30 and was diagnosed with a UTI. She was placed on an antibiotic, but she failed to improve and was thus evaluated in the ER at [facility]. Her temperature at that time was 101F. CT scan showed left hydronephrosis due to an 11 x 6 mm left distal ureteral calculus, along with an additional 3 mm left distal ureteral calculus was seen. The CT scan report also showed mild right hydronephrosis (stable since 2021), and multiple bilateral confluent renal calculi measuring up to 15 mm on the right and 22 mm on the left. Urinalysis showed positive nitrates, and the patient was somewhat hypotensive when evaluated. She was placed on cefepime and transferred to [facility] for further management. She underwent emergent left ureteral stent insertion. Her condition improved significantly. Urine and blood cultures were negative. Review of her CT scan shows bilateral renal calculi with stone burden which would warrant percutaneous nephrolithotomy, which she hopes to avoid. Operative Findings: Left distal ureteral calculi, fragmented and removed completely. Multiple large left renal calculi, fragmented. Description of Procedure: The patient was taken to the operating room and placed in the dorsolithotomy position, with legs supported in Sarthak stirrups. The external genitalia was prepped and draped sterilely. The 30 lens was used to introduce the 21-Tongan Saldana cystoscopic sheath through the urethra and into the bladder under direct vision. The bladder was examined in its entirety. No abnormalities were seen. Grasping forceps were used to grasp the distal end of the left ureteral stent which was removed along with the cystoscope. The semirigid ureteroscope was advanced into the bladder under direct vision. However, the patient's right leg could not be positioned in a way to allow ureteroscopy to be performed. Therefore, the semirigid ureteroscope was removed and the Saldana Boa flexible ureteroscope was advanced in the bladder. The left ureteral orifice was cannulated, and the ureteroscope was slowly advanced up to the left distal ureteral calculi. The Holmium laser probe was passed through the ureteroscope, and lithotripsy was performed. As the calculi fragmented, small fragments passed distally into the bladder. Once all of these calculus fragments had been removed from the ureter, the ureteroscope was advanced under direct vision. No additional ureteral calculi were seen proximally. Upon entering the renal pelvis, significant hydronephrosis was noted. Multiple calculi were seen, the largest measuring approximately 12 mm and located within an upper pole calyx. Lithotripsy was performed primarily utilizing a fragmenting and popcorning methodology. Visualization was poor due to a snowstorm effect, and the procedure was terminated. Pullout ureteroscopy showed no evidence of ureteral trauma. The Glidewire was passed through the ureteroscope as it was removed, and was subsequently backloaded into the cystoscope. A 22 cm, 6 Tongan double-J ureteral stent was placed over the wire. Proper stent positioning was verified fluoroscopically and endoscopically. The bladder was emptied and the cystoscope removed. The patient tolerated the procedure well and was taken to the recovery room in stable condition. RAFAEL ROCKS Report: Procedure Acuity: Elective Stone Size and Location: 12 mm, left upper pole Ureteral Dilation: No Ureteral Access Sheath Used: No Stone Sent for Analysis: Yes All Stones/Fragments Were Removed with a Basket: No Complications: No Preoperative Antibiotics Given: Yes Stent Placed: Yes If Stent Placed, Was String Left Attached: No If Stent Placed, When is it to be Removed: 3 weeks Discharge Medications: None
== END 2024-11-14 19:08 | disposition home or self-care (01) ==
LOC: OR 14:32
PROVIDERS: ATTEND Urology
DX: N13.2 Hydronephrosis with renal and ureteral calculous obstruction (principal); I48.91 Unspecified atrial fibrillation; I10 Essential (primary) hypertension; E11.9 Type 2 diabetes mellitus without complications; E78.5 Hyperlipidemia, unspecified; M81.0 Age-related osteoporosis without current pathological fracture; M19.90 Unspecified osteoarthritis, unspecified site; Z79.01 Long term (current) use of anticoagulants; Z79.84 Long term (current) use of oral hypoglycemic drugs; Z79.899 Other long term (current) drug therapy; Z87.440 Personal history of urinary (tract) infections; Z96.0 Presence of urogenital implants
CPT/HCPCS: 52356; 82365; 74018; C1769; J0330; J1100; J0690; J2405; J2003; J3010; J2704

== ENCOUNTER → 2024-11-14 | Outpatient (CLI) | payer MEDICARE ==
[2024-11-14 20:02] LABS: Blood Urea Nitrogen 15.3 mg/dL (9.0-27.0); Calcium 9.1 mg/dL (8.7-10.3); Carbon Dioxide 23.8 mmol/L (21.6-31.8); Chloride 103 mmol/L (96-109); Glucose 104 mg/dL (70-110); Potassium 4.4 mmol/L (3.5-5.5); Sodium 139 mmol/L (135-145)
[2024-11-14 20:44] LABS: Basophils # (A) 0.05 X 10*3/uL (0.00-0.10); Basophils % (A) 0.9 %; Eosinophils # (A) 0.12 X 10*3/uL (0.04-0.35); Eosinophils % (A) 2.2 %; HCT 43.4 % (37.2-46.3); HGB 13.8 g/dL (12.0-15.0); Lymphocytes # (A) 1.92 X 10*3/uL (0.90-5.00); Lymphocytes % (A) 35.2 %; MCH 30.9 pg (27.0-32.0); MCHC 31.8 g/dL (32.0-37.0); MCV 97.3 FL (80.0-97.0); Mean Platelet Volume 9.7 FL (9.5-12.2); Monocytes # (A) 0.48 X 10*3/uL (0.20-1.00); Monocytes % (A) 8.8 %; NRBC Per 100 WBC 0 X 10*3/uL (0.00-0.01); Neutrophils # (A) 2.85 X 10*3/uL (1.80-7.70); Neutrophils % (A) 52.3 %; Platelet Count 279 X 10*3/uL (140-440); RBC 4.46 X 10*6/uL (4.10-5.20); RDW 12.6 % (11.5-14.5); WBC 5.45 X 10*3/uL (4.50-10.00)
== END | disposition home or self-care (01) ==
LOC: LABPAT 14:07
PROVIDERS: ATTEND Urology
DX: Z01.812 Encounter for preprocedural laboratory examination (principal); N20.1 Calculus of ureter; N20.0 Calculus of kidney
CPT/HCPCS: 36415; 80048; 85025

== ENCOUNTER → 2025-01-23 | Outpatient (CLI) | payer MEDICARE ==
--- NOTE | 2025-01-23 17:37 | US ---
EXAMINATION TYPE: US kidneys/renal and bladder DATE OF EXAM: 01/23/2025 COMPARISON: Renal ultrasound 07/11/2023 CLINICAL INDICATION: Female, 89 years old with history of N20.0 CALCULUS OF KIDNEY; h/o renal stones, recent stone on the left removed TECHNIQUE: Grayscale imaging of the bilateral kidneys and urinary bladder: FINDINGS: EXAM MEASUREMENTS: Right Kidney: 11.1 x 5.1 x 5.0 cm Left Kidney: 10.0 x 3.9 x 5.3 cm *Scanned lady in wheelchair, could not lay on bed Right Kidney: Multiple stones with hydronephrosis seen Left Kidney: Multiple stones Bladder: unable to assess due to sitting in wheelchair Mild to moderate right hydronephrosis demonstrated. Multiple shadowing calculi identified within the right kidney. No left hydronephrosis. Multiple shadowing calculi identified within the left kidney. C orticomedullary differentiation is maintained bilaterally. No masses are identified. The urinary alem dder is is unable to be assessed due to patient positioning. IMPRESSION: 1. Mild to moderate right hydronephrosis. 2. Multiple nonobstructing bilateral renal calculi. [facility], , 01/23/2025 5:35 PM
--- NOTE | 2025-01-23 17:39 | XR ---
EXAMINATION TYPE: XR KUB DATE OF EXAM: 01/23/2025 COMPARISON: KUB radiograph 12/05/2024, renal ultrasound 01/23/2025 HISTORY: N20.0 CALCULUS OF KIDNEY TECHNIQUE: Single standing KUB image of the abdomen is obtained FINDINGS: Small bowel demonstrates no evidence for dilatation or air fluid levels. Gas and fecal material is seen in non-distended colon. No convincing evidence for pneumoperitoneum. Known bilateral renal calculi are not well visualized. No definitive ureteral calculus identified. The lung bases are clear. Cardiomegaly. The osseous structures are intact. IMPRESSION: 1. Overall nonobstructive bowel gas pattern. 2. Known bilateral renal calculi are not well visualized. [facility], , 01/23/2025 5:37 PM
== END | disposition home or self-care (01) ==
LOC: RADUSWWP 16:27
PROVIDERS: ATTEND Urology
DX: N13.2 Hydronephrosis with renal and ureteral calculous obstruction (principal)
CPT/HCPCS: 74018; 76770

== ENCOUNTER → 2025-01-30 | Outpatient (CLI) | payer MEDICARE ==
[2025-01-30 15:11] LABS: Basophils # (A) 0.03 X 10*3/uL (0.00-0.10); Basophils % (A) 0.6 %; Eosinophils # (A) 0.11 X 10*3/uL (0.04-0.35); Eosinophils % (A) 2.3 %; HCT 44.4 % (37.2-46.3); HGB 13.9 g/dL (12.0-15.0); Immature Grans, Automated 0.20 %; Lymphocytes # (A) 1.43 X 10*3/uL (0.90-5.00); Lymphocytes % (A) 29.7 %; MCH 29.6 pg (27.0-32.0); MCHC 31.3 g/dL (32.0-37.0); MCV 94.7 FL (80.0-97.0); Monocytes # (A) 0.43 X 10*3/uL (0.20-1.00); Monocytes % (A) 8.9 %; NRBC Per 100 WBC 0 X 10*3/uL (0.00-0.01); Neutrophils # (A) 2.81 X 10*3/uL (1.80-7.70); Neutrophils % (A) 58.3 %; Platelet Count 234 X 10*3/uL (140-440); RBC 4.69 X 10*6/uL (4.10-5.20); RDW 12.2 % (11.5-14.5); WBC 4.82 X 10*3/uL (4.50-10.00)
[2025-01-30 15:37] LABS: ALT 17 U/L (8-44); AST 20 U/L (13-35); Albumin 4.3 g/dL (3.8-4.9); Albumin/Globulin Ratio 1.95 Ratio (1.60-3.17); Alkaline Phosphatase 56 U/L (41-126); Anion Gap 10.20 mmol/L (4.00-12.00); BUN/Creat Ratio 24.83 Ratio (12.00-20.00); Blood Urea Nitrogen 14.9 mg/dL (9.0-27.0); Calcium 9.8 mg/dL (8.7-10.3); Carbon Dioxide 29.8 mmol/L (21.6-31.8); Chloride 102 mmol/L (96-109); Cholesterol 159.00 mg/dL (0.00-200.00); Creatine Kinase 40 U/L (26-186); Ferritin 24.3 ng/mL (10.0-291.0); Globulin 2.2 g/dL (1.6-3.3); Glucose 116 mg/dL (70-110); HDL Cholesterol 68.20 mg/dL (40.00-60.00); Iron 91 UG/DL (50-170); LDL Cholesterol,Calculated 77.3 mg/dL (0.0-131.0); Magnesium 1.9 mg/dL (1.5-2.4); Potassium 4.7 mmol/L (3.5-5.5); Sodium 142 mmol/L (135-145); T4, Free (Free Thyroxine) 1.36 ng/dL (0.80-1.80); Total Iron Binding Capacity 452 UG/DL (228-460); Total Protein 6.5 g/dL (6.2-8.2); Triglycerides 67.60 mg/dL (0.00-149.00); VLDL Calculation 13.52 mg/dL (5.00-40.00); Vitamin B12 618.0 pg/mL (200.0-944.0)
== END | disposition home or self-care (01) ==
LOC: LABWHC1 08:53
PROVIDERS: ATTEND Family Medicine
DX: E78.5 Hyperlipidemia, unspecified (principal); R53.82 Chronic fatigue, unspecified
CPT/HCPCS: 36415; 80053; 80061; 82550; 82607; 82728; 82746; 83540; 83550; 83735; 84439; 84443; 85025